=== PATIENT | male | born 1955 | race Caucasian/White ===

== ENCOUNTER 2022-04-19 22:27 | Inpatient (IN) | payer MEDICARE, OTHER ==
[~2022-04-19] VITALS: Ht 162.6 cm; Wt 51.3 kg
[2022-04-19 23:13] VITALS: BP 105/59
[2022-04-19 23:15] VITALS: BP 105/59
[2022-04-20] MEDS ORDERED: GABA-536 PO (00:07)
[2022-04-20] MEDS ORDERED: PANT40TA49 PO (00:07)
[2022-04-20] MEDS ORDERED: ESCI20TA PO (00:07)
[2022-04-20] MEDS ORDERED: ARIP10TA9 PO (00:07)
[2022-04-20] MEDS ORDERED: ZOLPIDEM TARTRATE 5 MG TABLET PO PRN (00:30)
[2022-04-20] MEDS ORDERED: Z GUARD REMEDY 4 OZ OINT TP PRN (00:30)
[2022-04-20] MEDS ORDERED: MAG HYDROX/AL HYDROX/SIMETH 30 ML UDC PO PRN (00:30)
[2022-04-20] MEDS ORDERED: MAGNESIUM HYDROXIDE 30 ML UDC PO PRN (00:30)
[2022-04-20] MEDS ORDERED: ACETAMINOPHEN 325 MG TABLET PO PRN (00:30)
[2022-04-20] MEDS: IV NS 0.9% 1,000 ML IV SCH ×3 (01:20→20:22)
--- NOTE | 2022-04-20 01:29 | NUR ---
RN ADMITTING NOTE PATIENT BROUGHT FROM [facility], PATIENT IS A/O X 4, ABLE TO MAKE NEEDS KNOWN. PATIENT IS ON RA TOLERATING WELL. PATIENT COMPLAINING OF ABDOMINAL CRAMPING/PAIN. COLOSTOMY PRESENT ON LLQ DRAINING DARK GREEN LIQUID STOOL. PATIENT CONTINENT AND USES URINAL. PATIENT'S BELONGINGS INVENTORIED. SKIN ASSESSED AND DOCUMENTED. PATIENT ORIENTED TO ROOM, RN , AND IT SENIOR SOFTWARE ENGINEER JAVA. PATIENT VACCINATED X 3 FOR COVID. SAFETY MEASURES IN PLACE: BED LOCKED AND IN LOWEST POSITION, CALL LIGHT WITHIN REACH, SIDE RAILS UP. WILL MONITOR PATIENT CLOSELY.
[2022-04-20] MEDS: HYDROCODONE/APAP 5/325MG TABLET PO PRN ×4 (01:40→20:46)
--- NOTE | 2022-04-20 01:50 | NUR ---
RN NOTE NORCO 5/325 GIVEN FOR PAIN ON PATIENT'S ABDOMEN 05/11. MRSA SWAB COLLECTED AND PLACED IN SPECIMEN FRIDGE. AWAITING LAB PICKUP.
--- NOTE | 2022-04-20 03:40 | NUR ---
URINE SPECIMEN COLLECTED FOR URINE OSMOLALITY, AWAITING LAB MACHINIST APPRENTICE
--- NOTE | 2022-04-20 06:42 | NUR ---
RN CLOSING NOTE PATIENT IS A/O X 4, ABLE TO MAKE NEEDS KNOWN. PATIENT IS ON RA TOLERATING WELL. PATIENT REPORTS HAVING PAIN ON ABD, NORCO 5-325 GIVEN. COLOSTOMY PRESENT ON LLQ DRAINING DARK GREEN LIQUID STOOL. RAVINDER 20 G PATENT AND INTACT WITH NS RUNNING AT 100 ML/HR. SAFETY MEASURES IN PLACE: BED LOCKED AND IN LOWEST POSITION, CALL LIGHT WITHIN REACH, SIDE RAILS UP. ALL NEEDS MET AND ATTENDED. ALL ORDERS CARRIED OUT. WILL ENDORSE TO DAY SHIFT RN FOR JUDSON.
--- NOTE | 2022-04-20 07:30 | NUR ---
MS RN OPENING NOTE Patient in bed, awake. A/O x 4, able to make needs known. Patient is legally blind. On room air, breathing evenly and unlabored. No SOB or s/s of distress noted. IV access on RAVINDER #20 infusing NS at 100 ml/hr. Colostomy noted on LLQ. Safety precautions in place: bed in low, locked position; siderails up x 2; call light within reach. Will continue to monitor.
[2022-04-20 08:00] VITALS: BP 93/56
[2022-04-20] MEDS: ARIPIPRAZOLE 5 MG TABLET PO SCH ×2 (09:00→09:09)
[2022-04-20] MEDS: PANTOPRAZOLE 40 MG TABLET.DR PO SCH (09:09)
[2022-04-20] MEDS: ESCITALOPRAM OXALATE (10 MG) 10 MG TABLET PO SCH (09:09)
[2022-04-20] MEDS: GABAPENTIN 400 MG CAPSULE PO SCH ×4 (09:09→17:19)
[2022-04-20 10:03] LABS: BASOPHILS % (AUTO) 0.1 % (0.0-2.0); EOSINOPHILS % (AUTO) 1.6 % (0.0-6.0); HEMATOCRIT 32 % (39-51); HEMOGLOBIN 10.9 g/dL (13.5-17.5); MEAN CORPUSCULAR HGB CONC 35 g/dl (31.0-36.0); MEAN CORPUSCULAR VOLUME 91 fL (80-96); MONOCYTES # (AUTO) 1.6 K/uL (0.1-1.30); MONOCYTES % (AUTO) 10.9 % (2.0-12.0); NEUTROPHILS # (AUTO) 11.5 K/uL (1.8-8.9); NEUTROPHILS % (AUTO) 80.4 % (43.0-81.0); PLATELET COUNT (AUTO) 201 K/uL (150-450); RED BLOOD CELL COUNT(AUTO) 3.47 MIL/uL (4.5-6.0); WHITE BLOOD COUNT (AUTO) 14.3 K/uL (4.3-11.0)
[2022-04-20 10:34] LABS: CALCIUM, SERUM 8.4 mg/dL (8.5-10.1); MAGNESIUM 1.3 mg/dL (1.8-2.4); PHOSPHORUS 3.1 mg/dL (2.5-4.9); POTASSIUM 3.1 mmol/L (3.5-5.1)
[2022-04-20] MEDS: CEFTRIAXONE 1 G in IV D5W 50 ML IV SCH (11:06)
[2022-04-20] MEDS ORDERED: METRONIDAZOLE 500MG/ NS 100ML 500 MG in PREMIX 1 EA IV SCH (13:00)
--- NOTE | 2022-04-20 14:32 | NUR ---
RN NOTE Patient complained of pain on the abdomen, 7/10 on pain scale. PRN Clyde 1 tab given. Will continue to monitor.
[2022-04-20 16:49] VITALS: BP 86/53
[2022-04-20] MEDS ORDERED: Magnesium 1GM/D5W 100ML PREMIX 100 ML IV SCH (17:00)
[2022-04-20] MEDS ORDERED: Magnesium 1GM/D5W 100ML PREMIX PIGGYBACK IV ONE (17:00)
--- NOTE | 2022-04-20 17:23 | NUR ---
RN NOTE Patient refused Gabapentin capsule scheduled for 0, states that he cannot take capsules because it gets stuck in his colostomy and it makes his stomach feel sick.
--- NOTE | 2022-04-20 18:51 | NUR ---
MS RN CLOSING NOTE Patient in bed, resting. A/O x 4, able to make needs known. Patient is legally blind. Stable on room air, breathing evenly and unlabored. No SOB or s/s of distress noted. IV access on RAVINDER #20 infusing NS at 100 ml/hr. Colostomy noted on LLQ. All needs attended to. Due meds given. Safety precautions maintained: bed in low, locked position; siderails up x 2; call light within reach. Will endorse to professor of sport management nurse for JUDSON.
--- NOTE | 2022-04-20 19:25 | NUR ---
RN OPENING NOTE PATIENT IS A/O X 4, ABLE TO MAKE NEEDS KNOWN. PATIENT IS ON RA TOLERATING WELL. NO REPORTS OF PAIN AT THIS TIME. COLOSTOMY PRESENT ON LLQ DRAINING DARK GREEN LIQUID STOOL. RAVINDER 20 G PATENT AND INTACT WITH NS RUNNING AT 100 ML/HR. SAFETY MEASURES IN PLACE: BED LOCKED AND IN LOWEST POSITION, CALL LIGHT WITHIN REACH, SIDE RAILS UP. WILL MONITOR PATIENT CLOSELY.
[2022-04-20 20:00] VITALS: BP 105/56
[2022-04-20] MEDS: METRONIDAZOLE 500MG/ NS 100ML 500 MG in PREMIX 1 EA IV SCH (20:22)
--- NOTE | 2022-04-20 20:49 | NUR ---
RN NTOE NORCO GIVEN FOR PAIN ON ABD 04/11, WILL REASSESS AT A LATER TIME
[2022-04-21] MEDS: HYDROCODONE/APAP 5/325MG TABLET PO PRN (02:59)
--- NOTE | 2022-04-21 02:59 | NUR ---
RN NOTE NORCO GIVEN FOR PATIENT'S PAIN ON ABD, WILL REASSESS PATIENT'S PAIN AT A LATER TIME.
[2022-04-21] MEDS: IV NS 0.9% 1,000 ML IV SCH ×2 (05:39→19:31)
[2022-04-21] MEDS: METRONIDAZOLE 500MG/ NS 100ML 500 MG in PREMIX 1 EA IV SCH ×3 (05:39→21:35)
[2022-04-21 06:15] LABS: BASOPHILS % (AUTO) 0.1 % (0.0-2.0); EOSINOPHILS % (AUTO) 1.7 % (0.0-6.0); HEMATOCRIT 33 % (39-51); HEMOGLOBIN 11.3 g/dL (13.5-17.5); LYMPHOCYTES # (AUTO) 1.3 K/uL (0.8-4.8); LYMPHOCYTES % (AUTO) 9.9 % (20.0-44.0); MEAN CORPUSCULAR HGB CONC 35 g/dl (31.0-36.0); MEAN CORPUSCULAR VOLUME 92 fL (80-96); MONOCYTES # (AUTO) 1.4 K/uL (0.1-1.30); MONOCYTES % (AUTO) 10.4 % (2.0-12.0); NEUTROPHILS # (AUTO) 10.3 K/uL (1.8-8.9); NEUTROPHILS % (AUTO) 77.9 % (43.0-81.0); PLATELET COUNT (AUTO) 209 K/uL (150-450); RED BLOOD CELL COUNT(AUTO) 3.54 MIL/uL (4.5-6.0); WHITE BLOOD COUNT (AUTO) 13.3 K/uL (4.3-11.0)
--- NOTE | 2022-04-21 06:45 | NUR ---
RN CLOSING NOTE PATIENT IS A/O X 4, ABLE TO MAKE NEEDS KNOWN. PATIENT A/O X 4, PATIENT BLIND ON BOTH, CAN ONLY SEE A VERY LITTLE. PATIENT IS ON RA TOLERATING WELL. PATIENT REPORTS HAVING PAIN ON ABD, NORCO 5-325 GIVEN. COLOSTOMY PRESENT ON LLQ DRAINING GREEN/REDDISH STOOL, PATIENT WAS EATING RED JELLO AND CRANBERRY JUICE. RAVINDER 20 G PATENT AND INTACT WITH NS RUNNING AT 100 ML/HR. SAFETY MEASURES IN PLACE: BED LOCKED AND IN LOWEST POSITION, CALL LIGHT WITHIN REACH, SIDE RAILS UP. ALL NEEDS MET AND ATTENDED. ALL ORDERS CARRIED OUT. WILL ENDORSE TO DAY SHIFT RN FOR JUDSON.
--- NOTE | 2022-04-21 07:29 | NUR ---
MS RN OPENING NOTE RECEIVED PATIENT AWAKE IN BED. PT IS A/O X 4, ABLE TO MAKE NEEDS KNOWN. PATIENT BLIND ON BOTH EYES, CAN ONLY SEE A VERY LITTLE. ON RA TOLERATING WELL. BREATHING UNLABORED WITH NO SIGN OF RESPIRATORY DISTRESS. COLOSTOMY PRESENT ON LLQ. RAVINDER G #20 PATENT AND INTACT WITH NS RUNNING AT 100 ML/HR. SAFETY MEASURES IN PLACE: BED LOCKED AND IN LOWEST POSITION, CALL LIGHT WITHIN REACH, SIDE RAILS UP. WILL CONTINUE TO MONITOR PT.
[2022-04-21 07:46] LABS: CALCIUM, SERUM 8.3 mg/dL (8.5-10.1); CREATININE 1.6 mg/dL (0.6-1.3)
[2022-04-21 07:58] LABS: POTASSIUM 2.8 mmol/L (3.5-5.1)
[2022-04-21 08:00] VITALS: BP 86/56
[2022-04-21] MEDS: GABAPENTIN 400 MG CAPSULE PO SCH ×5 (08:42→17:00)
[2022-04-21] MEDS: POTASSIUM CL. PREMIX PERIPHER. 50 ML IV SCH ×3 (08:42→10:59)
[2022-04-21] MEDS: ESCITALOPRAM OXALATE (10 MG) 10 MG TABLET PO SCH (08:42)
[2022-04-21] MEDS: PANTOPRAZOLE 40 MG TABLET.DR PO SCH (08:42)
[2022-04-21] MEDS: ARIPIPRAZOLE 5 MG TABLET PO SCH ×2 (08:42→08:55)
--- NOTE | 2022-04-21 08:56 | NUR ---
RN NOTE PT REFUSED ABILIFY AND NEURONTIN SCHEDULED AT 0900. EXPLAINED RISK AND BENEFITS X3, PT STILL STRONGLY REFUSED.
[2022-04-21] MEDS: MORPHINE SULFATE INJ 4 MG/ML DISP.SYRIN IV PRN ×4 (09:47→20:24)
[2022-04-21] MEDS: CEFTRIAXONE 1 G in IV D5W 50 ML IV SCH (12:03)
[2022-04-21 16:23] VITALS: BP 80/44
[2022-04-21 17:30] LABS: BILIRUBIN,URINE NEGATIVE (NEGATIVE); COLOR,URINE YELLOW (YELLOW); LEUKOCYTE ESTERASE ,URINE NEGATIVE (NEGATIVE); NITRITE, URINE NEGATIVE (NEGATIVE); PH,URINE 5.5 (5.0-8.0); PROTEIN,URINE NEGATIVE (NEGATIVE); UGLUCOSE NEGATIVE (NEGATIVE); UROBILINOGEN,URINE 0.2 EU/dL (0.2)
--- NOTE | 2022-04-21 19:22 | NUR ---
MS RN CLOSING NOTE PATIENT AWAKE IN BED. PT IS A/O X 4, ABLE TO MAKE NEEDS KNOWN. PATIENT BLIND ON BOTH EYES, CAN ONLY SEE A VERY LITTLE. ON RA TOLERATING WELL. BREATHING UNLABORED WITH NO SIGN OF RESPIRATORY DISTRESS. COLOSTOMY PRESENT ON LLQ. RAVINDER G #20 PATENT AND INTACT WITH NS RUNNING AT 100 ML/HR. ALL NEEDS ATTENDED. KEPT CLEAN AND COMFORTABLE. SAFETY MEASURES IN PLACE: BED LOCKED AND IN LOWEST POSITION, CALL LIGHT WITHIN REACH, SIDE RAILS UP. ENDORSED TO THUMB SEWER NURSE FOR JUDSON.
[2022-04-21 20:00] VITALS: BP 109/62
--- NOTE | 2022-04-21 20:29 | NUR ---
MS RN NOTES PRN MORPHINE GIVEN FOR 9/10 PAIN TOLERATED WELL ALL NEEDS ATTENDED WILL CONTINUE TO MONITOR.
[2022-04-21] MEDS ORDERED: IV PREMIX NS +20MEQ KCL 1 L IV ONE (23:28)
[2022-04-21] MEDS: Potassium Chloride 20 MEQ in IV NS 0.9% 1,000 ML IV SCH (23:59)
[2022-04-22] MEDS: MORPHINE SULFATE INJ 4 MG/ML DISP.SYRIN IV PRN ×5 (01:12→21:20)
--- NOTE | 2022-04-22 01:16 | NUR ---
MS RN NOTES PRN MORPHINE GIVEN FOR 9/10 PAIN TOLERATED WELL ALL NEEDS ATTENDED WILL CONTINUE TO MONITOR.
[2022-04-22] MEDS: METRONIDAZOLE 500MG/ NS 100ML 500 MG in PREMIX 1 EA IV SCH ×3 (04:07→20:23)
--- NOTE | 2022-04-22 06:35 | NUR ---
MS RN CLOSING NOTE PATIENT AWAKE IN BED. PT IS A/O X 4, ABLE TO MAKE NEEDS KNOWN. PATIENT BLIND ON BOTH EYES, CAN ONLY SEE A VERY LITTLE. ON RA TOLERATING WELL. BREATHING UNLABORED WITH NO SIGN OF RESPIRATORY DISTRESS. COLOSTOMY PRESENT ON LLQ. RAVINDER G #20 PATENT AND INTACT WITH NS WITH 20MEQ K @ 125 ML/HR. PRN PAIN MANAGEMENT PROVIDED NEEDED.SAFETY MEASURES IN PLACE: BED LOCKED AND IN LOWEST POSITION, CALL LIGHT WITHIN REACH, SIDE RAILS UP. WILL ENDORSE CARE TO DAY SHIFT NURSE.
[2022-04-22 06:36] LABS: BASOPHILS % (AUTO) 0.2 % (0.0-2.0); EOSINOPHILS % (AUTO) 1.5 % (0.0-6.0); HEMATOCRIT 28 % (39-51); HEMOGLOBIN 9.5 g/dL (13.5-17.5); LYMPHOCYTES % (AUTO) 9.4 % (20.0-44.0); MEAN CORPUSCULAR HGB CONC 34 g/dl (31.0-36.0); MEAN CORPUSCULAR VOLUME 91 fL (80-96); MONOCYTES # (AUTO) 0.9 K/uL (0.1-1.30); NEUTROPHILS # (AUTO) 8.9 K/uL (1.8-8.9); NEUTROPHILS % (AUTO) 80.9 % (43.0-81.0); PLATELET COUNT (AUTO) 187 K/uL (150-450); RED BLOOD CELL COUNT(AUTO) 3.07 MIL/uL (4.5-6.0); WHITE BLOOD COUNT (AUTO) 11.1 K/uL (4.3-11.0)
[2022-04-22 07:27] LABS: CREATININE 1.3 mg/dL (0.6-1.3); POTASSIUM 3.1 mmol/L (3.5-5.1)
--- NOTE | 2022-04-22 07:31 | NUR ---
MS RN OPENING NOTE RECEIVED PATIENT AWAKE IN BED. PATIENT IS A/O X 4, ABLE TO MAKE NEEDS KNOWN. PATIENT BLIND ON BOTH EYES, VERY SMALL . ON RA TOLERATING WELL. BREATHING UNLABORED WITH NO SIGN OF RESPIRATORY DISTRESS. COLOSTOMY PRESENT ON LLQ. RAVINDER G #20 PATENT AND INTACT WITH NS WITH 20MEQ K @ 125 ML/HR.SAFETY MEASURES IN PLACE: BED LOCKED AND IN LOWEST POSITION, CALL LIGHT WITHIN REACH, SIDE RAILS UP. WILL CONTINUE TO MONITOR.
[2022-04-22] MEDS: GABAPENTIN 400 MG CAPSULE PO SCH ×3 (09:00→16:11)
[2022-04-22] MEDS: ARIPIPRAZOLE 5 MG TABLET PO SCH (09:00)
[2022-04-22] MEDS: PANTOPRAZOLE 40 MG TABLET.DR PO SCH (09:06)
[2022-04-22] MEDS: ESCITALOPRAM OXALATE (10 MG) 10 MG TABLET PO SCH (09:06)
[2022-04-22] MEDS: Potassium Chloride 20 MEQ in IV NS 0.9% 1,000 ML IV SCH ×2 (09:33→16:12)
--- NOTE | 2022-04-22 09:37 | NUR ---
RN NOTES PATIENT REFUSED 0900 AM ABILIFY AND GABAPENTIN. EXPLAINED THE BENEFITS AND THE MEDICATION ACTIONS, BUT STILL REFUSING . RESPECTED PATIENT RIGHTS.
[2022-04-22] MEDS: CEFTRIAXONE 1 G in IV D5W 50 ML IV SCH (10:20)
[2022-04-22] MEDS ORDERED: POTASSIUM CHLORIDE 20 MEQ TAB.PRT.SR PO ONE (11:00)
--- NOTE | 2022-04-22 12:53 | NUR ---
RN NOTES PATIENT REFUSED 1300 GABAPENTIN.
[2022-04-22 16:00] VITALS: BP 105/60
--- NOTE | 2022-04-22 18:39 | NUR ---
MS RN CLOSING NOTE PATIENT AWAKE IN BED. PATIENT IS A/O X 4, ABLE TO MAKE NEEDS KNOWN. PATIENT BLIND ON BOTH EYES, VERY SMALL . ON RA TOLERATING WELL. BREATHING UNLABORED WITH NO SIGN OF RESPIRATORY DISTRESS. COLOSTOMY PRESENT ON LLQ. RAVINDER G #20 PATENT AND INTACT WITH NS WITH 20MEQ K @ 125 ML/HR. ALL DUE MEDS GIVEN ORDERED. SAFETY MEASURES IN PLACE: BED LOCKED AND IN LOWEST POSITION, CALL LIGHT WITHIN REACH, SIDE RAILS UP. WILL ENDORSE FOR JUDSON.
--- NOTE | 2022-04-22 19:36 | NUR ---
RN OPENING NOTE PATIENT IS A/O X 4, ABLE TO MAKE NEEDS KNOWN. PATIENT A/O X 4, PATIENT LEGALLY BLIND ON BOTH EYES. PATIENT IS ON RA TOLERATING WELL. NO REPORTS OF PAIN OR DISCOMFORT AT THIS TIME. COLOSTOMY PRESENT ON LLQ DRAINING GREEN STOOL. RAVINDER 20 G PATENT AND INTACT WITH NS WITH 20 MEQ OF POTASSIUM CL RUNNING AT 125 ML/HR. SAFETY MEASURES IN PLACE: BED LOCKED AND IN LOWEST POSITION, CALL LIGHT WITHIN REACH, SIDE RAILS UP. WILL MONITOR PATIENT CLOSELY.
[2022-04-22 20:00] VITALS: BP 112/52
[2022-04-22] MEDS: MUPIROCIN OINT 2% 22 GM TUBE NS SCH (20:24)
--- NOTE | 2022-04-22 21:20 | NUR ---
RN NOTE ADMINISTERED MORPHINE 4 MG TO PATIENT FOR PAIN 07/12, WILL REASSESS PATIENT'S PAIN AT A LATER TIME
[2022-04-23] MEDS: Potassium Chloride 20 MEQ in IV NS 0.9% 1,000 ML IV SCH ×4 (00:13→23:46)
--- NOTE | 2022-04-23 04:00 | NUR ---
RN NOTE PATIENT ACCIDENTLY REMOVED RAVINDER 20 G IV ACCESS. WILL RE-INSERT NEW IV ACCESS
--- NOTE | 2022-04-23 05:41 | NUR ---
LFA 22 G IV ACCESS INSERTED BY CHARGE NURSE MYRTLE. PATENT AND INTACT.
[2022-04-23] MEDS: METRONIDAZOLE 500MG/ NS 100ML 500 MG in PREMIX 1 EA IV SCH (05:42)
[2022-04-23] MEDS: MORPHINE SULFATE INJ 4 MG/ML DISP.SYRIN IV PRN ×3 (05:43→14:54)
--- NOTE | 2022-04-23 06:50 | NUR ---
RN CLOSING NOTE PATIENT IS A/O X 4, EYES CLOSED, EASILY AWAKENED. ABLE TO MAKE NEEDS KNOWN. PATIENT A/O X 4, PATIENT LEGALLY BLIND ON BOTH EYES. PATIENT IS ON RA TOLERATING WELL. NO REPORTS OF PAIN OR DISCOMFORT AT THIS TIME. PAIN ON THE ABDOMEN MANAGED WITH MORPHINE X 2. COLOSTOMY PRESENT ON LLQ DRAINING GREEN STOOL. LFA 22 G PATENT AND INTACT WITH NS WITH 20 MEQ OF POTASSIUM CL RUNNING AT 125 ML/HR. SAFETY MEASURES IN PLACE: BED LOCKED AND IN LOWEST POSITION, CALL LIGHT WITHIN REACH, SIDE RAILS UP. ALL NEEDS MET AND ATTENDED. ALL ORDERS CARRIED OUT. WILL ENDORSE TO DAY SHIFT NURSE FOR JUDSON.
[2022-04-23 07:10] LABS: BASOPHILS % (AUTO) 0.3 % (0.0-2.0); EOSINOPHILS % (AUTO) 1.2 % (0.0-6.0); HEMATOCRIT 27 % (39-51); HEMOGLOBIN 9.4 g/dL (13.5-17.5); LYMPHOCYTES % (AUTO) 8.4 % (20.0-44.0); MEAN CORPUSCULAR HGB CONC 34 g/dl (31.0-36.0); MEAN CORPUSCULAR VOLUME 92 fL (80-96); MONOCYTES % (AUTO) 8.5 % (2.0-12.0); NEUTROPHILS # (AUTO) 9.3 K/uL (1.8-8.9); NEUTROPHILS % (AUTO) 81.6 % (43.0-81.0); PLATELET COUNT (AUTO) 164 K/uL (150-450); RED BLOOD CELL COUNT(AUTO) 2.95 MIL/uL (4.5-6.0); WHITE BLOOD COUNT (AUTO) 11.4 K/uL (4.3-11.0)
[2022-04-23 07:36] LABS: BILIRUBIN,DIRECT 0.1 mg/dL (0.0-0.2); BILIRUBIN,TOTAL 0.3 mg/dL (0.2-1.0); CALCIUM, SERUM 7.3 mg/dL (8.5-10.1); CREATININE 1.2 mg/dL (0.6-1.3); POTASSIUM 2.9 mmol/L (3.5-5.1); TOTAL PROTEIN, SERUM 5.5 g/dL (6.4-8.2)
--- NOTE | 2022-04-23 07:54 | NUR ---
MS RN OPENING NOTE Patient in bed, awake. A/Ox 4, patient is legally blind on both eyes. On room air, breathing evenly and unlabored. No SOB or s/s of distress noted. IV access on LFA #22 infusing NS with 20 meq K at 125 ml/hr. Colostomy on LLQ noted. Safety precautions in place: bed in low, locked position; siderails up x 2; call light within reach. Will continue to monitor.
[2022-04-23] MEDS: ESCITALOPRAM OXALATE (10 MG) 10 MG TABLET PO SCH (08:18)
[2022-04-23] MEDS: PANTOPRAZOLE 40 MG TABLET.DR PO SCH (08:18)
[2022-04-23] MEDS: MUPIROCIN OINT 2% 22 GM TUBE NS SCH ×3 (08:23→21:51)
[2022-04-23] MEDS: ARIPIPRAZOLE 5 MG TABLET PO SCH (08:25)
[2022-04-23] MEDS: GABAPENTIN 400 MG CAPSULE PO SCH ×3 (08:25→17:00)
[2022-04-23] MEDS: POTASSIUM CHLORIDE 20 MEQ TAB.PRT.SR PO SCH ×3 (10:03→12:24)
--- NOTE | 2022-04-23 10:07 | NUR ---
RN NOTE Patient complained of pain on abdomen 9/10 pain scale. PRN Morphine 4 mg give. Will continue to monitor.
[2022-04-23] MEDS: CEFTRIAXONE 1 G in IV D5W 50 ML IV SCH (11:19)
[2022-04-23] MEDS: METRONIDAZOLE 500 MG TABLET PO SCH ×3 (12:26→21:53)
--- NOTE | 2022-04-23 14:54 | NUR ---
RN NOTE Patient complained of pain on abdomen 9/10 pain scale. PRN Morphine 4 mg give. Will continue to monitor.
--- NOTE | 2022-04-23 17:33 | NUR ---
RN NOTE Patient has been refusing Gabapentin medication, states that the capsule is getting stuck in his colostomy. Explained that we can take the powder out from the capsule and mix it with apple sauce or juice, patient still refused.
--- NOTE | 2022-04-23 18:59 | NUR ---
MS RN CLOSING NOTE Patient in bed, asleep. A/Ox 4, patient is legally blind on both eyes. Stable on room air, breathing evenly and unlabored. No SOB or s/s of distress noted. IV access on LFA #22 infusing NS with 20 meq K at 125 ml/hr. Colostomy on LLQ noted. Due meds given. All needs attended to. Safety precautions in place: bed in low, locked position; siderails up x 2; call light within reach. Will endorse to evening or night nurse supervisor nurse for JUDSON.
--- NOTE | 2022-04-23 19:00 | NUR ---
RN NOTE Patient's BP is 73/37, patient refusing to retake BP. HR is 73, RR 16, Temp 97.7, SPO2 98. Dr. Gold notified, awaiting for orders.
--- NOTE | 2022-04-23 19:28 | NUR ---
RN OPENING NOTE PATIENT IS A/O X 4, ABLE TO MAKE NEEDS KNOWN. PATIENT A/O X 4, PATIENT LEGALLY BLIND ON BOTH EYES. PATIENT IS ON RA TOLERATING WELL. NO REPORTS OF PAIN OR DISCOMFORT AT THIS TIME. COLOSTOMY PRESENT ON LLQ DRAINING BROWNISH STOOL. LFA 22 G PATENT AND INTACT WITH NS WITH 20 MEQ OF POTASSIUM CL RUNNING AT 125 ML/HR. NO PAIN AT THIS TIME. AWAITING MD ORDER FOR LOW BP. SAFETY MEASURES IN PLACE: BED LOCKED AND IN LOWEST POSITION, CALL LIGHT WITHIN REACH, SIDE RAILS UP. WILL MONITOR PATIENT CLOSELY.
[2022-04-23 20:00] VITALS: BP 82/42
[2022-04-23] MEDS ORDERED: IV NS 0.9% 500 ML IV ONE ×2 (20:00→23:00)
--- NOTE | 2022-04-23 20:03 | NUR ---
BP 82/43, HR 68. PREVIOUSLY 73/37. DR. BENNETT ORDERED 500 ML BOLUS. BOLUS IV NS 500 ML STARTED.
--- NOTE | 2022-04-23 21:59 | NUR ---
PATIENT REFUSED FLAGYL PO, AND BACTROBAN. EDUCATED PATIENT ON PURPOSE OF MEDS, RISK AND BENEFITS. WHEN ASKED PATIENT FOR A REASON FOR REFUSAL PATIENT STATES THAT HE "DOESN'T LIKE" THE BACTROBAN AND "JUST DON'T WANT TO TAKE IT" FOR THE FLAGYL.
--- NOTE | 2022-04-23 22:00 | NUR ---
AFTER BOLUS BP 92/48, RECEHCKED MANUALLY 90/50 Addendum: 04/23/22 at 2217 by BRIAN MARIN RN NOTIFIED. AWAITING ORDERS
--- NOTE | 2022-04-23 22:33 | NUR ---
MD ORDERED ANOTHER 500 ML BOLUS NS, ORDER READ BACK AND CARRIED OUT.
--- NOTE | 2022-04-23 23:40 | NUR ---
BP AFTER BOLUS 91/41, REFUSING MANUAL BP. WILL NOTIFY
--- NOTE | 2022-04-24 | NUR ---
PER MD MONITOR BP, NO NEW ORDERS
[2022-04-24 04:00] VITALS: BP 94/47
[2022-04-24] MEDS: ONDANSETRON HCL/PF 4 MG/2 ML VIAL IVP PRN (06:16)
--- NOTE | 2022-04-24 06:20 | NUR ---
ZOFRAN GIVEN, PATIENT VERBALIZED HAVING NAUSEA, NO VOMITING
[2022-04-24 06:45] LABS: BASOPHILS % (AUTO) 0.3 % (0.0-2.0); EOSINOPHILS % (AUTO) 1.1 % (0.0-6.0); HEMATOCRIT 26 % (39-51); HEMOGLOBIN 8.6 g/dL (13.5-17.5); LYMPHOCYTES # (AUTO) 0.8 K/uL (0.8-4.8); LYMPHOCYTES % (AUTO) 6.3 % (20.0-44.0); MEAN CORPUSCULAR HGB CONC 34 g/dl (31.0-36.0); MEAN CORPUSCULAR VOLUME 92 fL (80-96); MONOCYTES # (AUTO) 0.9 K/uL (0.1-1.30); MONOCYTES % (AUTO) 7.5 % (2.0-12.0); NEUTROPHILS # (AUTO) 10.1 K/uL (1.8-8.9); NEUTROPHILS % (AUTO) 84.8 % (43.0-81.0); PLATELET COUNT (AUTO) 183 K/uL (150-450); RED BLOOD CELL COUNT(AUTO) 2.78 MIL/uL (4.5-6.0); WHITE BLOOD COUNT (AUTO) 11.9 K/uL (4.3-11.0)
[2022-04-24 06:49] LABS: CALCIUM, SERUM 6.5 mg/dL (8.5-10.1); CREATININE 1.2 mg/dL (0.6-1.3); PHOSPHORUS 1.9 mg/dL (2.5-4.9)
--- NOTE | 2022-04-24 07:00 | NUR ---
RN CLOSING NOTE PATIENT IS A/O X 4, EYES CLOSED, EASILY AWAKENED. ABLE TO MAKE NEEDS KNOWN. PATIENT A/O X 4, PATIENT LEGALLY BLIND ON BOTH EYES. PATIENT IS ON RA TOLERATING WELL. NAUSEA MANAGED WITH ZOFRAN IVP. BP STILL RUNNING LOW. COLOSTOMY PRESENT ON LLQ DRAINING BROWNISH/YELLOW STOOL. LFA 22 G PATENT AND INTACT WITH NS WITH 20 MEQ OF POTASSIUM CL RUNNING AT 125 ML/HR. SAFETY MEASURES IN PLACE: BED LOCKED AND IN LOWEST POSITION, CALL LIGHT WITHIN REACH, SIDE RAILS UP. ALL NEEDS MET AND ATTENDED. ALL ORDERS CARRIED OUT. WILL ENDORSE TO DAY SHIFT NURSE FOR JUDSON.
[2022-04-24 07:12] LABS: POTASSIUM 2.6 mmol/L (3.5-5.1)
[2022-04-24 07:14] LABS: MAGNESIUM 0.6 mg/dL (1.8-2.4)
--- NOTE | 2022-04-24 07:16 | NUR ---
LOGISTICS MANAGEMENT SPECIALIST CARLOS CALLED TO REPORT CRITICAL LAB OF K+ 2.6, MAG 0.6. WILL NOTIFY
--- NOTE | 2022-04-24 07:30 | NUR ---
MS RN OPENING NOTES RECEIVED PATIENT ON BED AWAKE AND VERBALLY RESONSIVE , ABLE TO MAKE NEEDS KNOWN. PATIENT A/O X 4, PATIENT LEGALLY BLIND ON BOTH EYES. PATIENT IS ON RA TOLERATING WELL. NO REPORTS OF PAIN OR DISCOMFORT AT THIS TIME. COLOSTOMY PRESENT ON LLQ DRAINING BROWNISH STOOL. LFA 22 G PATENT AND INTACT WITH NS WITH 20 MEQ OF POTASSIUM CL RUNNING AT 125 ML/HR. NO PAIN AT THIS TIME.. SAFETY MEASURES IN PLACE: BED LOCKED AND IN LOWEST POSITION, CALL LIGHT WITHIN REACH, SIDE RAILS UP. WILL MONITOR PATIENT CLOSELY.
[2022-04-24 08:17] VITALS: BP 102/56
[2022-04-24] MEDS: Potassium Chloride 20 MEQ in IV NS 0.9% 1,000 ML IV SCH (08:33)
[2022-04-24] MEDS: ARIPIPRAZOLE 5 MG TABLET PO SCH (09:00)
[2022-04-24] MEDS: MUPIROCIN OINT 2% 22 GM TUBE NS SCH ×2 (09:00→22:18)
[2022-04-24] MEDS: GABAPENTIN 400 MG CAPSULE PO SCH ×3 (09:00→17:00)
[2022-04-24] MEDS: PANTOPRAZOLE 40 MG TABLET.DR PO SCH (09:01)
[2022-04-24] MEDS: ESCITALOPRAM OXALATE (10 MG) 10 MG TABLET PO SCH (09:01)
[2022-04-24] MEDS: METRONIDAZOLE 500 MG TABLET PO SCH (09:01)
--- NOTE | 2022-04-24 09:22 | NUR ---
RN NOTE- MAG 0.6. DR BENNETT ORDERED MAG 8 GM IV. ORDER ENTERED / COMPLIED
[2022-04-24] MEDS: Magnesium 1GM/D5W 100ML PREMIX 100 ML IV SCH ×8 (09:42→19:21)
[2022-04-24] MEDS: Potassium Chloride 40 MEQ in IV NS 0.9% 1,000 ML IV SCH ×2 (10:22→22:00)
--- NOTE | 2022-04-24 10:30 | NUR ---
RN NOTE Patient threw water pitcher on the floor, when asked what happened patient wouldn't respond.
[2022-04-24] MEDS: HYDROCODONE/APAP 5/325MG TABLET PO PRN (10:48)
--- NOTE | 2022-04-24 10:48 | NUR ---
RN NOTE Patient complained of abdominal pain 7/10 on pain scale. PRN Norcp 5/325 1 tablet given. Will continue to monitor.
[2022-04-24] MEDS: CEFTRIAXONE 1 G in IV D5W 50 ML IV SCH (11:09)
[2022-04-24 11:22] LABS: IRON, SERUM 172 ug/dl (50-175); TOTAL IRON BINDING CAPACITY 167 ug/dl (250-450)
[2022-04-24] MEDS: METRONIDAZOLE 500MG/ NS 100ML 500 MG in PREMIX 1 EA IV SCH ×2 (13:39→22:18)
[2022-04-24 15:43] VITALS: BP 96/57
[2022-04-24] MEDS ORDERED: K PHOS NEUTRAL 250 MG TABLET PO ONE (16:00)
[2022-04-24] MEDS: ENSURE ENLIVE CHOC 237 ML CAN PO SCH (17:20)
--- NOTE | 2022-04-24 18:39 | NUR ---
RN NOTE Patient pulled out IV access. Attempted re-insertion, patient is refusing; getting agitated and angry.
--- NOTE | 2022-04-24 18:52 | NUR ---
RN NOTE Patient still refusing IV re-insertion, still angry and agitated. Will wait for patient to calm down, will endorse to retail shift leader nurse to try re-insertion.
--- NOTE | 2022-04-24 18:54 | NUR ---
MS RN CLOSING NOTE Patient in bed. A/O x 4, able to make needs known. Stable on room air, breathing evenly and unlabored. No SOB or s/s of distress noted. Patient pulled out IV access and refusing re-insertion. All needs attended to. Due meds given. Safety precautions maintained: be din low ,locked position; siderails up x 2; call light within reach. Will endorse to night worker nurse for JUDSON.
[2022-04-24 20:00] VITALS: BP 95/46
--- NOTE | 2022-04-24 21:00 | NUR ---
RN NOTE IV INSERTION X2 UNSUCCESSFUL. SUCCESSFUL ON 3RD ATTEMPT BY Luisa SWAN ON L-FA #25K
[2022-04-25 04:11] VITALS: BP 107/64
[2022-04-25] MEDS: HYDROCODONE/APAP 5/325MG TABLET PO PRN ×4 (04:20→20:08)
[2022-04-25] MEDS: METRONIDAZOLE 500MG/ NS 100ML 500 MG in PREMIX 1 EA IV SCH ×3 (05:30→20:07)
--- NOTE | 2022-04-25 07:00 | NUR ---
MS RN OPENING NOTE PATIENT LAYING IN BED, A/O X 4, ABLE TO MAKE NEEDS KNOWN. TOLERATING WELL ON ROOM AIR WITH NO S/S RESPIRATORY DISTRESS. NO COMPLAINTS OF PAIN OR DISCOMFORT AT THIS TIME. L FA # 22 G IV CLEAN, INTACT, AND INFUSING NS WITH 40 mEq KCL @ 100 ML/HR. SAFETY MEASURES IN PLACE: BED IN LOWEST LOCKED POSITION, SIDE RAILS UP X 2, CALL LIGHT WITHIN REACH. WILL CONTINUE TO MONITOR.
[2022-04-25] MEDS: Potassium Chloride 40 MEQ in IV NS 0.9% 1,000 ML IV SCH ×2 (07:40→16:51)
[2022-04-25 07:51] LABS: BASOPHILS % (AUTO) 0.3 % (0.0-2.0); EOSINOPHILS % (AUTO) 0.7 % (0.0-6.0); HEMATOCRIT 26 % (39-51); HEMOGLOBIN 8.7 g/dL (13.5-17.5); LYMPHOCYTES % (AUTO) 8.9 % (20.0-44.0); MEAN CORPUSCULAR HGB CONC 34 g/dl (31.0-36.0); MEAN CORPUSCULAR VOLUME 91 fL (80-96); MONOCYTES # (AUTO) 0.8 K/uL (0.1-1.30); MONOCYTES % (AUTO) 6.9 % (2.0-12.0); NEUTROPHILS # (AUTO) 9.6 K/uL (1.8-8.9); NEUTROPHILS % (AUTO) 83.2 % (43.0-81.0); PLATELET COUNT (AUTO) 201 K/uL (150-450); RED BLOOD CELL COUNT(AUTO) 2.83 MIL/uL (4.5-6.0); WHITE BLOOD COUNT (AUTO) 11.6 K/uL (4.3-11.0)
[2022-04-25 08:10] LABS: ALBUMIN 2.8 g/dL (3.4-5.0); BILIRUBIN,DIRECT 0.1 mg/dL (0.0-0.2); BILIRUBIN,TOTAL 0.2 mg/dL (0.2-1.0); TOTAL PROTEIN, SERUM 5.3 g/dL (6.4-8.2)
[2022-04-25] MEDS: ESCITALOPRAM OXALATE (10 MG) 10 MG TABLET PO SCH (08:40)
[2022-04-25] MEDS: ARIPIPRAZOLE 5 MG TABLET PO SCH ×2 (08:40→09:00)
[2022-04-25] MEDS: PANTOPRAZOLE 40 MG TABLET.DR PO SCH (08:40)
[2022-04-25] MEDS: GABAPENTIN 400 MG CAPSULE PO SCH ×4 (08:40→16:52)
[2022-04-25] MEDS: MUPIROCIN OINT 2% 22 GM TUBE NS SCH ×2 (08:41→20:09)
[2022-04-25] MEDS: ENSURE ENLIVE CHOC 237 ML CAN PO SCH ×2 (08:41→16:52)
[2022-04-25 09:02] LABS: CREATININE 1.1 mg/dL (0.6-1.3); MAGNESIUM 1.9 mg/dL (1.8-2.4); PHOSPHORUS 1.7 mg/dL (2.5-4.9)
[2022-04-25 09:07] LABS: POTASSIUM 2.7 mmol/L (3.5-5.1)
[2022-04-25] MEDS: CEFTRIAXONE 1 G in IV D5W 50 ML IV SCH (11:10)
[2022-04-25] MEDS ORDERED: POTASSIUM CHLORIDE 20 MEQ TAB.PRT.SR PO ONE (13:00)
[2022-04-25 15:48] VITALS: BP 95/53
[2022-04-25] MEDS ORDERED: K PHOS NEUTRAL 250 MG TABLET PO ONE (16:00)
--- NOTE | 2022-04-25 19:00 | NUR ---
MS RN CLOSING NOTE PATIENT LAYING IN BED, A/O X 4, ABLE TO MAKE NEEDS KNOWN. TOLERATING WELL ON ROOM AIR WITH NO S/S RESPIRATORY DISTRESS. L FA # 22 G IV CLEAN, INTACT, AND FLUSHING WELL. RAVINDER MIDLINE CLEAN, INTACT, AND INFUSING NS WITH 40 mEq KCL @ 100 ML/HR. ALL NEEDS MET. SAFETY MEASURES IN PLACE: BED IN LOWEST LOCKED POSITION, SIDE RAILS UP X 2, CALL LIGHT WITHIN REACH. WILL ENDORSE TO WIND TURBINE BLADE REPAIR TECHNICIAN FOR JUDSON. Addendum: 04/25/22 at 1942 by EDMAR EVERETT RN NORCO 5/325 MG PO PRN Q4H ADMINISTERED AT 0932 AND 1651 DURING SHIFT FOR ABDOMINAL PAIN
--- NOTE | 2022-04-25 19:30 | NUR ---
MS RN OPENING NOTE RECEIVED PATIENT LAYING IN BED, A/O X 4, ABLE TO MAKE NEEDS KNOWN. PT STABLE ON ROOM AIR. NO SOB OR S/S OF RESPIRATORY DISTRESS. BREATHING EVEN AND UNLABORED. IV ACCESS LFA # 22 G AND RAVINDER ML RUNNING NS WITH 40 mEq KCL @ 100 ML/HR. SAFETY PRECAUTIONS IN PLACE. BED IN LOWEST LOCKED POSITION, HOB ELEVATED, SIDE RAILS UP X2, AND CALL LIGHT AND TABLE WITHIN REACH. ALL NEEDS MET AT THIS TIME.
[2022-04-25 20:00] VITALS: BP 112/50
--- NOTE | 2022-04-25 20:08 | NUR ---
RN NOTE PT COMPLAINED OF ABDOMINAL PAIN 04/11. ADMINISTERED NORCO 5-325 MG FOR MODERATE PAIN PER ORDER AND PATIENT REQUEST. MADE COMFORTABLE IN BED. ALL NEEDS MET AT THIS TIME.
[2022-04-25] MEDS ORDERED: [UNRECOGNIZED DRUG - OTHER] IV PRN (23:00)
[2022-04-25] MEDS ORDERED: POTASSIUM CHLORIDE IV PRN (23:00)
[2022-04-26] MEDS: HYDROCODONE/APAP 5/325MG TABLET PO PRN ×2 (00:46→23:47)
[2022-04-26] MEDS: ONDANSETRON HCL/PF 4 MG/2 ML VIAL IVP PRN (03:03)
--- NOTE | 2022-04-26 03:03 | NUR ---
RN NOTE PT COMPLAINED OF NAUSEA. ADMINISTERED ZOFRAN 4 MG FOR NAUSEA ORDERED. ALL OTHER NEEDS MET AT THIS TIME.
[2022-04-26] MEDS: METRONIDAZOLE 500MG/ NS 100ML 500 MG in PREMIX 1 EA IV SCH ×4 (04:09→21:50)
[2022-04-26] MEDS: MORPHINE SULFATE INJ 4 MG/ML DISP.SYRIN IV PRN (05:38)
--- NOTE | 2022-04-26 05:38 | NUR ---
RN NOTE PT COMPLAINED OF ABDOMINAL PAIN 07/12. ADMINISTERED MORPHINE 4 MG FOR SEVERE PAIN PER ORDER AND PATIENT REQUEST. MADE COMFORTABLE IN BED. ALL NEEDS MET AT THIS TIME.
--- NOTE | 2022-04-26 06:43 | NUR ---
MS RN CLOSING NOTE PATIENT LAYING IN BED, A/O X 4, ABLE TO MAKE NEEDS KNOWN. PT STABLE ON ROOM AIR. NO SOB OR S/S OF RESPIRATORY DISTRESS. BREATHING EVEN AND UNLABORED. IV ACCESS LFA # 22 G AND RAVINDER ML RUNNING NS WITH 40 mEq KCL @ 100 ML/HR. ALL DUE MEDS GIVEN ORDERED. SAFETY PRECAUTIONS IN PLACE AT ALL TIMES. BED IN LOWEST LOCKED POSITION, HOB ELEVATED, SIDE RAILS UP X2, AND CALL LIGHT AND TABLE WITHIN REACH. ALL NEEDS MET AT THIS TIME AND WILL ENDORSE TO ONCOMING NURSE FOR JUDSON.
--- NOTE | 2022-04-26 07:00 | NUR ---
MS RN OPENING NOTE PATIENT LAYING IN BED, A/O X 4, ABLE TO MAKE NEEDS KNOWN. TOLERATING WELL ON ROOM AIR WITH NO S/S RESPIRATORY DISTRESS. NO COMPLAINTS OF PAIN OR DISCOMFORT AT THIS TIME. LFA # 22G SL CLEAN, INTACT, AND INFUSING NS WITH 40 mEq KCL @ 100 ML/HR. SAFETY MEASURES IN PLACE: BED IN LOWEST LOCKED POSITION, SIDE RAILS UP X 2, CALL LIGHT WITHIN REACH. WILL CONTINUE TO MONITOR.
[2022-04-26 07:01] LABS: BASOPHILS % (AUTO) 0.4 % (0.0-2.0); EOSINOPHILS % (AUTO) 1.2 % (0.0-6.0); HEMATOCRIT 25 % (39-51); HEMOGLOBIN 8.6 g/dL (13.5-17.5); LYMPHOCYTES # (AUTO) 0.8 K/uL (0.8-4.8); LYMPHOCYTES % (AUTO) 10.7 % (20.0-44.0); MEAN CORPUSCULAR HGB CONC 35 g/dl (31.0-36.0); MEAN CORPUSCULAR VOLUME 91 fL (80-96); MONOCYTES # (AUTO) 0.6 K/uL (0.1-1.30); MONOCYTES % (AUTO) 8.2 % (2.0-12.0); NEUTROPHILS # (AUTO) 6.1 K/uL (1.8-8.9); NEUTROPHILS % (AUTO) 79.5 % (43.0-81.0); PLATELET COUNT (AUTO) 185 K/uL (150-450); RED BLOOD CELL COUNT(AUTO) 2.73 MIL/uL (4.5-6.0); WHITE BLOOD COUNT (AUTO) 7.7 K/uL (4.3-11.0)
[2022-04-26 07:30] LABS: CALCIUM, SERUM 7.4 mg/dL (8.5-10.1); PHOSPHORUS 2.3 mg/dL (2.5-4.9); POTASSIUM 3.3 mmol/L (3.5-5.1)
[2022-04-26] MEDS: POTASSIUM CHLORIDE IV SCH ×2 (07:38→17:06)
[2022-04-26] MEDS: [UNRECOGNIZED DRUG - OTHER] IV SCH ×2 (07:38→17:06)
[2022-04-26 07:40] LABS: MAGNESIUM 1.1 mg/dL (1.8-2.4)
[2022-04-26 08:00] VITALS: BP 104/68
[2022-04-26] MEDS: ENSURE ENLIVE CHOC 237 ML CAN PO SCH ×2 (08:04→16:55)
[2022-04-26] MEDS: PANTOPRAZOLE 40 MG TABLET.DR PO SCH ×2 (09:00→09:16)
[2022-04-26] MEDS: GABAPENTIN 400 MG CAPSULE PO SCH ×3 (09:00→16:55)
[2022-04-26] MEDS: MUPIROCIN OINT 2% 22 GM TUBE NS SCH ×2 (09:00→21:00)
[2022-04-26] MEDS: ARIPIPRAZOLE 5 MG TABLET PO SCH (09:00)
[2022-04-26] MEDS: ESCITALOPRAM OXALATE (10 MG) 10 MG TABLET PO SCH ×2 (09:00→09:16)
[2022-04-26] MEDS: Magnesium 1GM/D5W 100ML PREMIX 100 ML IV SCH ×6 (09:16→15:00)
[2022-04-26] MEDS: POTASSIUM CHLORIDE 20 MEQ TAB.PRT.SR PO ONE ×2 (09:30→09:56)
[2022-04-26] MEDS: CEFTRIAXONE 1 G in IV D5W 50 ML IV SCH (11:37)
[2022-04-26 16:00] VITALS: BP 97/55
[2022-04-26] MEDS ORDERED: K PHOS NEUTRAL 250 MG TABLET PO ONE (16:00)
--- NOTE | 2022-04-26 19:00 | NUR ---
MS RN CLOSING NOTE PATIENT LAYING IN BED, A/O X 4, ABLE TO MAKE NEEDS KNOWN. TOLERATING WELL ON ROOM AIR WITH NO S/S RESPIRATORY DISTRESS. NO COMPLAINTS OF PAIN OR DISCOMFORT AT THIS TIME. RFA MIDLINE CLEAN, INTACT, AND INFUSING NS WITH 50 mEq KCL @ 100 ML/HR. PATIENT HAD PULLED OUT MIDLINE DURING SHIFT, MIDLINE WAS INSERTED AGAIN IN THE EVENING WITH PATIENT STATING HE WOULD NOT PULL IT AGAIN. PATIENT WAS NOT ABLE TO RECEIVE IV FLUIDS FOR A SHORT PERIOD DURING SHIFT. CURRENT MIDLINE IS CLEAN, INTACT, AND ABLE TO INFUSE FLUIDS WITHOUT INCIDENT. SAFETY MEASURES IN PLACE: BED IN LOWEST LOCKED POSITION, SIDE RAILS UP X 2, CALL LIGHT WITHIN REACH. ALL NEEDS MET. WILL ENDORSE TO TUNNEL KILN REPAIRER FOR JUDSON.
[2022-04-26 20:00] VITALS: BP 92/46
--- NOTE | 2022-04-26 20:52 | NUR ---
RN OPENING NOTE PATIENT AWAKE IN BED. A/OX4. NO S/S OF DISTRESS, BREATHING ON ROOM AIR W/O DIFFICULTY. RAVINDER MIDLINE #18 INTACT AND PATENT RUNNIG W/ KCl 100ML/HR. SAFETY MEASURES IN PLACE: BED AT LOWEST POSITION, LOCKED, RAILS UP X2, CALL MAYNARD WITHIN REACH. WILL CONTINUE TO MONITOR PATIENT.
[2022-04-27] MEDS: [UNRECOGNIZED DRUG - OTHER] IV SCH ×2 (04:10→14:14)
[2022-04-27] MEDS: POTASSIUM CHLORIDE IV SCH ×2 (04:10→14:14)
[2022-04-27] MEDS: METRONIDAZOLE 500MG/ NS 100ML 500 MG in PREMIX 1 EA IV SCH (05:30)
[2022-04-27] MEDS: HYDROCODONE/APAP 5/325MG TABLET PO PRN (05:30)
[2022-04-27 07:20] LABS: BASOPHILS % (AUTO) 0.5 % (0.0-2.0); EOSINOPHILS % (AUTO) 1.1 % (0.0-6.0); HEMATOCRIT 25 % (39-51); HEMOGLOBIN 8.5 g/dL (13.5-17.5); LYMPHOCYTES # (AUTO) 0.8 K/uL (0.8-4.8); LYMPHOCYTES % (AUTO) 8.9 % (20.0-44.0); MEAN CORPUSCULAR HGB CONC 34 g/dl (31.0-36.0); MEAN CORPUSCULAR VOLUME 91 fL (80-96); MONOCYTES # (AUTO) 0.7 K/uL (0.1-1.30); MONOCYTES % (AUTO) 7.8 % (2.0-12.0); NEUTROPHILS # (AUTO) 6.9 K/uL (1.8-8.9); NEUTROPHILS % (AUTO) 81.7 % (43.0-81.0); PLATELET COUNT (AUTO) 185 K/uL (150-450); RED BLOOD CELL COUNT(AUTO) 2.71 MIL/uL (4.5-6.0); WHITE BLOOD COUNT (AUTO) 8.5 K/uL (4.3-11.0)
--- NOTE | 2022-04-27 07:30 | NUR ---
RN OPENING NOTE PATIENT AWAKE IN BED. A/OX4. NO S/S OF DISTRESS, BREATHING ON ROOM AIR W/O DIFFICULTY. RAVINDER MIDLINE #18 INTACT AND PATENT RUNNING W/ KCl 100ML/HR. SAFETY MEASURES IN PLACE: BED AT LOWEST POSITION, LOCKED, SIDE RAILS UP X2, CALL MAYNARD WITHIN REACH. WILL CONTINUE TO MONITOR PATIENT.
--- NOTE | 2022-04-27 07:33 | NUR ---
RN CLOSING NOTE PATIENT AWAKE IN BED. A/OX4. NO S/S OF DISTRESS; BREATHING W/O DIFFICULTY ON ROOM AIR. RAVINDER MIDLINE #18 INTACT AND PATENT W/ KCl 100ML/HR. SAFETY MEASURES IN PLACE: BED AT LOWEST POSITION, LOCKED, RAILS UP X2, CALL MAYNARD WITHIN REACH. REPORT ENDORSED TO AND ACKNOWLEDGED BY JAMILAH DAY SHIFT RN, FOR JUDSON.
[2022-04-27] MEDS: ENSURE ENLIVE CHOC 237 ML CAN PO SCH (07:37)
[2022-04-27 08:00] VITALS: BP 109/53
[2022-04-27 08:29] LABS: CALCIUM, SERUM 8.3 mg/dL (8.5-10.1); MAGNESIUM 1.3 mg/dL (1.8-2.4); PHOSPHORUS 2.6 mg/dL (2.5-4.9); POTASSIUM 3.3 mmol/L (3.5-5.1)
[2022-04-27] MEDS: MUPIROCIN OINT 2% 22 GM TUBE NS SCH (09:53)
[2022-04-27] MEDS: Magnesium 1GM/D5W 100ML PREMIX 100 ML IV SCH ×4 (09:54→13:22)
[2022-04-27] MEDS: ESCITALOPRAM OXALATE (10 MG) 10 MG TABLET PO SCH (09:55)
[2022-04-27] MEDS: PANTOPRAZOLE 40 MG TABLET.DR PO SCH (09:55)
[2022-04-27] MEDS: ARIPIPRAZOLE 5 MG TABLET PO SCH (09:55)
[2022-04-27] MEDS: GABAPENTIN 400 MG CAPSULE PO SCH ×2 (09:55→12:31)
[2022-04-27] MEDS ORDERED: POTASSIUM CHLORIDE 20 MEQ TAB.PRT.SR PO ONE (10:00)
[2022-04-27] MEDS: MORPHINE SULFATE INJ 4 MG/ML DISP.SYRIN IV PRN (10:23)
[2022-04-27] MEDS: CEFTRIAXONE 1 G in IV D5W 50 ML IV SCH (11:41)
[2022-04-27] MEDS ORDERED: METRONIDAZOLE 500 MG TABLET PO SCH (13:00)
--- NOTE | 2022-04-27 15:44 | NUR ---
DISCHARGE NOTE REVIEWED DISCHARGE INSTRUCTIONS WITH PT. PT VERBALIZED UNDERSTANDING. PT DISCHARGED VIA GURNEY WITH BELONGINGS, PRESCRIPTIONA AND INSTRUCTION. IV PREVIOUSLY DISCONTINUED. PT LEFT HOSPITAL TO ASS[facility]ED LIVING. V/S: BP 109/53, P 70, RR 18, T 98.2, SPO2 98.
== END 2022-04-27 15:45 | DRG 871 ==
LOC: MED 23:09
PROVIDERS: ADMIT Nurse Practitioner Acute Care; ATTEND Student in an Organized Health Care Education/Training Program
PROC: 05HB33Z Insertion of Infusion Device into Right Basilic Vein, Percutaneous Approach (ICD-10-PCS; principal; 2022-04-25)
PROC: 05H933Z Insertion of Infusion Device into Right Brachial Vein, Percutaneous Approach (ICD-10-PCS; 2022-04-26)
DX: A41.9 Sepsis, unspecified organism (principal); N17.0 Acute kidney failure with tubular necrosis; K85.90 Acute pancreatitis without necrosis or infection, unspecified; K50.90 Crohn's disease, unspecified, without complications; E87.1 Hypo-osmolality and hyponatremia; Z93.2 Ileostomy status; Z79.899 Other long term (current) drug therapy; K52.9 Noninfective gastroenteritis and colitis, unspecified; E86.1 Hypovolemia; Z95.0 Presence of cardiac pacemaker; Z86.79 Personal history of other diseases of the circulatory system; H54.8 Legal blindness, as defined in USA; E87.6 Hypokalemia; Z90.49 Acquired absence of other specified parts of digestive tract; N20.0 Calculus of kidney; E83.42 Hypomagnesemia; D63.8 Anemia in other chronic diseases classified elsewhere; R91.1 Solitary pulmonary nodule; F32.A Depression, unspecified
CPT/HCPCS: 36410; 36415; 74018; 76770-TC; 80048-TC; 80061-TC; 80076-TC; 83540-TC; 83690-TC; 83735-TC; 84100-TC; 85025-TC; 87081-TC; 97116-TC; 97530-TC; A4216; G0378; J0696; J2270; J2405; J3475; J3480; J3490; J7030; J7040; J7050; J7060

== ENCOUNTER 2022-05-02 22:22 | Inpatient (IN) | payer MEDICARE, OTHER ==
[2022-05-01 21:30] VITALS: BP 73/44
[~2022-05-02] VITALS: Ht 162.6 cm; Wt 49.9 kg
[~2022-05-02 22:22] MED LIST: ARIP10TA9 PO; ESCI20TA PO; GABA-536 PO; PANT40TA49 PO
[2022-05-02] MEDS ORDERED: ONDANSETRON HCL/PF 4 MG/2 ML VIAL IVP PRN (23:00)
[2022-05-02] MEDS ORDERED: MAG HYDROX/AL HYDROX/SIMETH 30 ML UDC PO PRN (23:00)
[2022-05-02] MEDS ORDERED: ZOLPIDEM TARTRATE 5 MG TABLET PO PRN (23:00)
[2022-05-02] MEDS ORDERED: MAGNESIUM HYDROXIDE 30 ML UDC PO PRN (23:00)
[2022-05-02] MEDS ORDERED: MORPHINE SULFATE INJ 2 MG/ML DISP.SYRIN IV PRN (23:00)
[2022-05-02] MEDS ORDERED: ACETAMINOPHEN 325 MG TABLET PO PRN (23:00)
[2022-05-02] MEDS ORDERED: Z GUARD REMEDY 4 OZ OINT TP PRN (23:00)
--- NOTE | 2022-05-02 23:00 | NUR ---
MS RN NOTE PATIENT'S BLOOD PRESSURE LOW. BP: 73/44, HR: 77. SIZE WORKER SENTHIL ABDUL AT BEDSIDE AND AWARE, ORDERED IV FLUIDS
--- NOTE | 2022-05-02 23:15 | NUR ---
MS [place] MACHINE OPERATOR NOTE PATIENT ARRIVED ON UNIT FROM [facility]. PATIENT ALERT/ORIENTED X 3, PT ABLE TO MAKE NEEDS KNOWN. PATIENT STABLE ON RA, NO S/S OF DISTRESS OR SOB NOTED, BREATHING EVEN AND UNLABORED. PATIENT HAS NO IV ACCESS, PER EMT'S PATIENT PULLED OUT AT [facility] AND NEW IV WAS NOT INSERTED. PATIENT LEGALLY BLIND BUT ABLE TO SEE SHAPES FROM RIGHT EYE. PATIENT HAS COLOSTOMY BAG ON LEFT LOWER QUADRANT, NO BM NOTED, PER PATIENT COLOSTOMY BAG WAS CHANGED AT [facility] TODAY. PATIENT SKIN INTACT, HAS ABDOMINAL AND RIGHT KNEE SURGICAL SCARS AND SCAB ON LEFT FOOT. PATIENT FULLY VACCINATED FOR COVID AND FLU, HOWEVER DOESN'T REMEMBER DATES, WILL FOLLOW UP. PATIENT DENIES RECENT FALLS, PT ABLE TO AMBULATE WITH ASSISTANCE D/T BLINDNESS. SAFETY MEASURES IN PLACE: CALL LIGHT WITHIN REACH, SIDE RAILS UP X 2, BED LOCKED IN LOWEST POSITION, BED ALARM ON. WILL CONTINUE TO MONITOR PATIENT.
--- NOTE | 2022-05-03 00:19 | NUR ---
MS RN NOTE PATIENT IS HARD STICK, UNABLE TO START IV. CHARGE NURSE ATTEMPTED X 2 BUT UNABLE TO. CALLED ER FOR RN TO COME INSERT IV
[2022-05-03] MEDS: IV NS 0.9% 1,000 ML IV PRN ×2 (00:45→19:57)
[2022-05-03] MEDS ORDERED: CEFTRIAXONE 1 G VIAL ONE (00:47)
[2022-05-03 00:59] VITALS: BP 90/53
--- NOTE | 2022-05-03 00:59 | NUR ---
MS RN NOTE PATIENT COMPLAINING OF 8/10 ABDOMINAL PAIN, UNABLE TO GIVE MORPHINE D/T BP OF 90/53. IV FLUIDS NOW RUNNING. WILL GIVE NORCO 5-325 MG FOR PAIN MANAGEMENT
[2022-05-03] MEDS: HYDROCODONE/APAP 5/325MG TABLET PO PRN ×4 (01:04→12:11)
[2022-05-03] MEDS: CEFTRIAXONE 1 G in IV D5W 50 ML IV SCH ×2 (01:08→22:46)
[2022-05-03 05:12] VITALS: BP 100/59
[2022-05-03 06:32] LABS: BASOPHILS % (AUTO) 0.5 % (0.0-2.0); EOSINOPHILS % (AUTO) 0.5 % (0.0-6.0); HEMATOCRIT 25 % (39-51); HEMOGLOBIN 8.7 g/dL (13.5-17.5); LYMPHOCYTES # (AUTO) 0.9 K/uL (0.8-4.8); LYMPHOCYTES % (AUTO) 12.7 % (20.0-44.0); MEAN CORPUSCULAR HGB CONC 35 g/dl (31.0-36.0); MEAN CORPUSCULAR VOLUME 92 fL (80-96); MONOCYTES # (AUTO) 0.9 K/uL (0.1-1.30); MONOCYTES % (AUTO) 12.8 % (2.0-12.0); NEUTROPHILS # (AUTO) 5.2 K/uL (1.8-8.9); NEUTROPHILS % (AUTO) 73.5 % (43.0-81.0); PLATELET COUNT (AUTO) 193 K/uL (150-450); RED BLOOD CELL COUNT(AUTO) 2.73 MIL/uL (4.5-6.0); WHITE BLOOD COUNT (AUTO) 7.1 K/uL (4.3-11.0)
--- NOTE | 2022-05-03 07:05 | NUR ---
MS RN CLOSING NOTE PATIENT SLEEPING IN BED, ALERT/ORIENTED X 3, PT ABLE TO MAKE NEEDS KNOWN. PATIENT STABLE ON RA, NO S/S OF DISTRESS OR SOB NOTED, BREATHING EVEN AND UNLABOERD. PATIENT LEGALLY BLIND BUT ABLE TO SEE "SHAPES". PATIENT AMBULATORY TO BATHROOM WITH ASSIST, STEADY GAIT, USES CANE AT FACILITY. PATIENT EMPTIES ILEOSTOMY BAG ON HIS OWN. IV ACCESS ON LFA #24G INTACT AND INFUSING NS @ 100 ML/HR. MEDICATIONS GIVEN ORDERED, PATIENT NEEDS MET THROUGHOUT SHIFT. SAFETY MEASURES IN PLACE: CALL LIGHT WITHIN REACH, SIDE RAILS UP X 2, BED LOCKED IN LOWEST POSITION, BED ALARM ON. WILL CONTINUE TO MONITOR PATIENT
[2022-05-03 07:33] LABS: CALCIUM, SERUM 8.6 mg/dL (8.5-10.1); CREATININE 2.5 mg/dL (0.6-1.3); MAGNESIUM 1.3 mg/dL (1.8-2.4); PHOSPHORUS 4.1 mg/dL (2.5-4.9); POTASSIUM 3.5 mmol/L (3.5-5.1)
[2022-05-03 08:00] VITALS: BP 82/44
[2022-05-03] MEDS ORDERED: PANTOPRAZOLE 40 MG TABLET.DR PO SCH (09:00)
[2022-05-03] MEDS: ARIPIPRAZOLE 5 MG TABLET PO SCH ×2 (09:20→09:25)
[2022-05-03] MEDS: ESCITALOPRAM OXALATE (10 MG) 10 MG TABLET PO SCH ×2 (09:21→09:25)
[2022-05-03] MEDS: PANTOPRAZOLE 40 MG TABLET.DR PO SCH ×2 (09:21→09:25)
[2022-05-03] MEDS: Magnesium 1GM/D5W 100ML PREMIX 100 ML IV SCH ×4 (11:58→18:00)
--- NOTE | 2022-05-03 13:06 | NUR ---
RN note patient asked for the pain medications because developed pain of his abdomen 05/11 , Menan 5/325 mg was brought to the patient , he refused to take it, with out reason , then demanded to disconnect his IV hydration and refused to have infusion of the Magnesium 1 mg as was scheduled , I asked what is the reason patient keep being quite., left the room will check on patient in an hour Addendum: 05/03/22 at 1318 by GARFIELD BULL RN Medications were returned to the return box , charge nurse witness and aware of the patient's act
[2022-05-03 16:00] VITALS: BP 88/44
--- NOTE | 2022-05-03 16:02 | NUR ---
RN note Patient pulled out his IV acces of the [employer] saline lock ,2 attempts to start peripheral iv was unsuccessful . Order placed for mid line .
--- NOTE | 2022-05-03 18:43 | NUR ---
RN closing note Patient is alert , oriented times 3, ambulates to the restroom to urinate with assistance. Patient has ileostomy , able to empty it independently , c/o abdomen pain but refused pain medication.Patient is on room air breathing un labored, no sighns of distress, has mid line of the JES[employer]EL NS running at 100 ml/hr. All medications were administered .Bed is at lowest position , bed side rails are up , call light within reach
[2022-05-03 20:00] VITALS: BP 94/45
--- NOTE | 2022-05-03 20:15 | NUR ---
MS/TELE/RN PATIENT IS AWAKE, ALERT, ORIENTED, NO C/O PAIN, NO SIGNS OF DISTRESS NOTED, CALL LIGHT IN REACH, FALL PRECAUTIONS PER PROTOCOL IMPLEMENTED, WILL MONITOR.
[2022-05-04 06:36] LABS: BASOPHILS # (AUTO) 0.1 K/uL (0.0-0.2); BASOPHILS % (AUTO) 0.8 % (0.0-2.0); EOSINOPHILS % (AUTO) 1.5 % (0.0-6.0); HEMATOCRIT 24 % (39-51); HEMOGLOBIN 8.2 g/dL (13.5-17.5); LYMPHOCYTES % (AUTO) 12.9 % (20.0-44.0); MEAN CORPUSCULAR HGB CONC 34 g/dl (31.0-36.0); MEAN CORPUSCULAR VOLUME 94 fL (80-96); MONOCYTES # (AUTO) 0.9 K/uL (0.1-1.30); NEUTROPHILS # (AUTO) 5.8 K/uL (1.8-8.9); NEUTROPHILS % (AUTO) 73.8 % (43.0-81.0); PLATELET COUNT (AUTO) 192 K/uL (150-450); RED BLOOD CELL COUNT(AUTO) 2.59 MIL/uL (4.5-6.0); WHITE BLOOD COUNT (AUTO) 7.8 K/uL (4.3-11.0)
--- NOTE | 2022-05-04 06:40 | NUR ---
MS/TELE/RN PATIENT IS AWAKE, NO C/O PAIN, NO SIGNS OF DISTRESS NOTED, CALL LIGHT IN REACH, ALL NEEDS ATTENDED AT THIS TIME, WILL CONTINUE TO MONITOR.
--- NOTE | 2022-05-04 07:00 | NUR ---
MS RN OPENING NOTES PATIENT LAYING IN BED, A/O X 3, ABLE TO MAKE NEEDS KNOWN. TOLERATING WELL ON ROOM AIR WITH NO S/S RESPIRATORY DISTRESS. JESUS MANUEL WITH NS INFUSING @ 100 ML/HR. ILEOSTOMY IN PLACE DRAINING LIQUID STOOL. SAFETY MEASURES IN PLACE: BED IN LOWEST LOCKED POSITION, SIDE RAILS UP X 2, CALL LIGHT WITHIN REACH. WILL CONTINUE TO MONITOR.
[2022-05-04 07:11] LABS: CALCIUM, SERUM 8.1 mg/dL (8.5-10.1); CREATININE 1.4 mg/dL (0.6-1.3); MAGNESIUM 1.8 mg/dL (1.8-2.4); POTASSIUM 3.2 mmol/L (3.5-5.1)
[2022-05-04 08:00] VITALS: BP 110/62
[2022-05-04] MEDS: HYDROCODONE/APAP 5/325MG TABLET PO PRN (08:31)
[2022-05-04] MEDS ORDERED: POTASSIUM CHLORIDE 20 MEQ TAB.PRT.SR PO ONE (10:00)
[2022-05-04] MEDS ORDERED: POTASSIUM CHLORIDE 20 MEQ TAB.PRT.SR PO SCH (11:00)
[2022-05-04] MEDS: IV NS 0.9% 1,000 ML IV PRN (11:29)
--- NOTE | 2022-05-04 13:00 | NUR ---
BURGLAR ALARM SUPERINTENDENT NOTES PATIENT MADE AWARE OF MD DISCHARGE ORDERS AND INSTRUCTIONS. PATIENT VERBALIZED UNDERSTANDING OF MD DISCHARGE INSTRUCTIONS. BELONGINGS LIST READ OFF TO PATIENT, AND VERBALIZED POSSESSION OF ALL BELONGINGS. PATIENT WAS UNABLE TO SIGN EITHER SHEET DUE TO BLINDNESS, COSIGN OBTAINED WITH SECOND NURSE. IV LINE AND ID BAND REMOVED. PATIENT WAS TRANSPORTED FROM UNIT BY 2 MANAGER UTILIZATION EN ROUTE TO ASSISTED LIVING FACILITY. COPIES OF ALL PAPERWORK PROVIDED TO PATIENT. PATIENT STABLE AT TIME OF DISCHARGE.
== END 2022-05-04 13:00 | DRG 391 ==
LOC: MED 22:22
PROVIDERS: ADMIT Internal Medicine; ATTEND Internal Medicine
PROC: 05H933Z Insertion of Infusion Device into Right Brachial Vein, Percutaneous Approach (ICD-10-PCS; principal; 2022-05-03)
DX: A09 Infectious gastroenteritis and colitis, unspecified (principal); N17.0 Acute kidney failure with tubular necrosis; N39.0 Urinary tract infection, site not specified; E87.1 Hypo-osmolality and hyponatremia; K50.90 Crohn's disease, unspecified, without complications; K21.9 Gastro-esophageal reflux disease without esophagitis; Z79.899 Other long term (current) drug therapy; B96.89 Other specified bacterial agents as the cause of diseases classified elsewhere; Z90.49 Acquired absence of other specified parts of digestive tract; Z93.2 Ileostomy status; F29 Unspecified psychosis not due to a substance or known physiological condition; N20.0 Calculus of kidney; E86.1 Hypovolemia; Z95.0 Presence of cardiac pacemaker; Z86.79 Personal history of other diseases of the circulatory system; F32.A Depression, unspecified
CPT/HCPCS: 36410; 36415; 76770-TC; 80048-TC; 83735-TC; 84100-TC; 85025-TC; 87081-TC; G0378; J0696; J2405; J3475; J7030; J7060

== ENCOUNTER 2023-06-25 18:39 | Inpatient (IN) | payer MEDICARE, OTHER ==
[~2023-06-25] VITALS: Ht 162.6 cm; Wt 52.6 kg
[2023-06-25] MEDS ORDERED: OCTR100V SQ (19:12)
[2023-06-25] MEDS ORDERED: MIRT7.5T10 PO (19:12)
[2023-06-25] MEDS ORDERED: POTA20TA83 PO (19:12)
[2023-06-25] MEDS ORDERED: IPRA3AMP23 IH (19:12)
[2023-06-25] MEDS ORDERED: LIPA1CAP15 PO (19:12)
[2023-06-25] MEDS ORDERED: MAGN400T26 PO (19:12)
[2023-06-25] MEDS ORDERED: CRAN425C6 PO (19:12)
[2023-06-25] MEDS ORDERED: TIMO5DRO18 EACHEYE (19:12)
[2023-06-25] MEDS ORDERED: TAMS-12 PO (19:12)
[2023-06-25] MEDS ORDERED: ACET-868 PO (19:12)
[2023-06-25] MEDS ORDERED: SACC250C9 PO (19:12)
[2023-06-25] MEDS ORDERED: CALC500T13 PO (19:12)
[2023-06-25] MEDS ORDERED: LEVA1.2528 IH (19:12)
[2023-06-25] MEDS ORDERED: ONDA4TAB5 PO (19:12)
[2023-06-25] MEDS ORDERED: COLE1TAB PO (19:12)
[2023-06-25] MEDS ORDERED: POLY17PO4 PO (19:12)
[2023-06-25] MEDS ORDERED: OXYC-128 PO (19:12)
[2023-06-25] MEDS ORDERED: MULT-594 PO (19:12)
[2023-06-25] MEDS ORDERED: MIDO10TA PO (19:12)
[2023-06-25 19:45] LABS: BASOPHILS % (AUTO) 0.6 % (0.0-2.0); EOSINOPHILS # (AUTO) 0.1 K/uL (0.0-0.7); EOSINOPHILS % (AUTO) 1.5 % (0.0-6.0); HEMATOCRIT 37 % (39-51); HEMOGLOBIN 12.6 g/dL (13.5-17.5); LYMPHOCYTES # (AUTO) 1.1 K/uL (0.8-4.8); LYMPHOCYTES % (AUTO) 15.9 % (20.0-44.0); MEAN CORPUSCULAR HEMOGLOBIN 30 PG (26.0-33.0); MEAN CORPUSCULAR HGB CONC 34 g/dl (31.0-36.0); MEAN CORPUSCULAR VOLUME 90 fL (80-96); MONOCYTES # (AUTO) 0.8 K/uL (0.1-1.30); MONOCYTES % (AUTO) 11.2 % (2.0-12.0); NEUTROPHILS # (AUTO) 4.9 K/uL (1.8-8.9); NEUTROPHILS % (AUTO) 70.8 % (43.0-81.0); PLATELET COUNT (AUTO) 187 K/uL (150-450); RED BLOOD CELL COUNT(AUTO) 4.15 MIL/uL (4.5-6.0); RED CELL DISTRIBUTION WIDTH 13.5 % (11.5-15.0); WHITE BLOOD COUNT (AUTO) 6.9 K/uL (4.3-11.0)
[2023-06-25 19:55] LABS: CALCIUM, SERUM 9.2 mg/dL (8.5-10.1); CARBON DIOXIDE 25 mmol/L (21-32); CHLORIDE 106 mmol/L (98-107); CREATININE 1.2 mg/dL (0.6-1.3); GLUCOSE 97 mg/dL (74-106); POTASSIUM 3.6 mmol/L (3.5-5.1); SODIUM SERUM 138 mmol/L (136-145); UREA NITROGEN, BLOOD 18 mg/dL (7-18)
[2023-06-25 20:01] LABS: ALANINE AMINOTRANSFERASE 41 U/L (12-78); ALBUMIN 3.7 g/dL (3.4-5.0); ALCOHOL, BLOOD < 3 mg/dL (0-10); ALKALINE PHOSPHATASE 128 U/L (46-116); ASPARTATE AMINOTRANSFERASE 28 U/L (15-37); BILIRUBIN,DIRECT 0.2 mg/dL (0.0-0.2); BILIRUBIN,TOTAL 0.7 mg/dL (0.2-1.0)
[2023-06-25 20:34] LABS: ACETAMINOPHEN <10 ug/ml (10-30); SALICYLATE < 2.3 mg/dL (2.8-20.0)
[2023-06-25 22:04] LABS: APPEARANCE,URINE CLEAR (CLEAR); BILIRUBIN,URINE NEGATIVE (NEGATIVE); BLOOD, URINE NEGATIVE Ery/uL (NEGATIVE); COLOR,URINE YELLOW (YELLOW); KETONES,URINE NEGATIVE (NEGATIVE); LEUKOCYTE ESTERASE ,URINE TRACE (NEGATIVE); NITRITE, URINE NEGATIVE (NEGATIVE); PROTEIN,URINE 1+ mg/dl (NEGATIVE); UGLUCOSE NEGATIVE (NEGATIVE); UROBILINOGEN,URINE 0.2 EU/dL (0.2)
[2023-06-25 22:28] LABS: AMPHETAMINE, URINE NEGATIVE (NEGATIVE); BARBITURATE, URINE NEGATIVE (NEGATIVE); BENZODIAZEPINE, URINE NEGATIVE (NEGATIVE); CANNABINOID, URINE NEGATIVE (NEGATIVE); COCCAINE, URINE NEGATIVE (NEGATIVE); PHENCYCLIDINE SCREEN,URINE NEGATIVE (NEGATIVE)
[2023-06-25 22:38] LABS: OPIATE, URINE POSITIVE (NEGATIVE)
[2023-06-25 22:41] LABS: ADD URINE CULTURE YES; BACTERIA,URINE Few /HPF (None Seen); RBC,URINE NONE SEEN /HPF (0-2); SQUAMOUS EPITHELIAL CELL,UR None Seen /HPF (None Seen); YEAST,URINE Moderate /HPF (None Seen)
[2023-06-25 22:42] LABS: MUCUS,URINE Few /LPF (None Seen)
[2023-06-26 00:50] VITALS: BP 133/74; TEMP 98.4; O2SAT 97
[2023-06-26] MEDS ORDERED: ONDANSETRON HCL/PF 4 MG/2 ML VIAL IVP PRN (05:30)
[2023-06-26] MEDS ORDERED: ZOLPIDEM TARTRATE 5 MG TABLET PO PRN (05:30)
[2023-06-26] MEDS ORDERED: MAG HYDROX/AL HYDROX/SIMETH 30 ML UDC PO PRN (05:30)
[2023-06-26] MEDS ORDERED: MAGNESIUM HYDROXIDE 30 ML UDC PO PRN (05:30)
[2023-06-26] MEDS ORDERED: ENOXAPARIN SODIUM 40 MG/0.4 ML DISP.SYRIN SQ SCH (05:30)
[2023-06-26] MEDS ORDERED: Z GUARD REMEDY 4 OZ OINT TP PRN (05:30)
[2023-06-26] MEDS ORDERED: ACETAMINOPHEN 325 MG TABLET PO PRN (05:30)
[2023-06-26] MEDS ORDERED: oxyCODONE/APAP (5/325 MG) 1 UDTAB TABLET PO PRN (06:00)
[2023-06-26 07:30] VITALS: BP 147/84; TEMP 98; O2SAT 98
[2023-06-26] MEDS ORDERED: PANTOPRAZOLE 40 MG TABLET.DR PO SCH (07:30)
[2023-06-26] MEDS ORDERED: POLYETHYLENE GLYCOL 3350 17 GM POWD.PACK PO PRN (11:00)
[2023-06-26] MEDS ORDERED: IPRATROPIUM NEB FS 0.5 MG/2.5 ML AMPUL.NEB NEB PRN (11:30)
[2023-06-26] MEDS ORDERED: ALBUTEROL FS 2.5 MG/3 ML VIAL.NEB NEB PRN (11:30)
[2023-06-26 12:20] VITALS: BP 105/58; TEMP 98.1; O2SAT 99
[2023-06-26 12:36] VITALS: BP 104/58
[2023-06-26] MEDS ORDERED: LIPASE/PROTEASE/AMYLASE 1 EACH CAPSULE.DR PO SCH (13:00)
[2023-06-26] MEDS ORDERED: MAGNESIUM OXIDE 400 MG TABLET PO SCH (13:00)
[2023-06-26] MEDS ORDERED: MIDODRINE HCL (5MG) 5 MG TABLET PO SCH (13:00)
[2023-06-26] MEDS ORDERED: ZOLP5TAB8 PO (14:04)
[2023-06-26] MEDS ORDERED: MULT-447 PO (14:04)
[2023-06-26] MEDS ORDERED: ALLA266C2 TP (14:04)
[2023-06-26] MEDS ORDERED: LIPA1CAP27 PO (14:04)
[2023-06-26] MEDS ORDERED: MAGN400O6 PO ×2 (14:04)
[2023-06-26] MEDS ORDERED: PANT40TA2 PO (14:04)
[2023-06-26] MEDS ORDERED: ENOX40DI SQ (14:04)
[2023-06-26] MEDS ORDERED: TIMOLOL 0.5% SOLN OPHTH 5 ML BOTTLE EACHEYE SCH (17:00)
[2023-06-26] MEDS ORDERED: COLESTIPOL HCL 1 GM PO SCH (17:00)
[2023-06-26] MEDS ORDERED: MIRTAZAPINE 15 MG TABLET PO SCH (22:00)
[2023-06-27] MEDS ORDERED: POTASSIUM CHLORIDE 20 MEQ TAB.PRT.SR PO SCH (09:00)
[2023-06-27] MEDS ORDERED: Medication Not On Formulary EA (Saccharomyces Boulardii (Probiotic) 250 MG) PO SCH (09:00)
[2023-06-27] MEDS ORDERED: ESCITALOPRAM OXALATE (10 MG) 10 MG TABLET PO SCH (09:00)
[2023-06-27] MEDS ORDERED: TAMSULOSIN 0.4 MG CAP.SR.24H PO SCH (09:00)
[2023-06-27] MEDS ORDERED: Medication Not On Formulary EA (Cranberry Extract (Cranberry) 425 MG) PO SCH (09:00)
[2023-06-27] MEDS ORDERED: CALCIUM CARBONATE 500 MG TAB.CHEW PO SCH (09:00)
[2023-06-27] MEDS ORDERED: MULTIVIT W/MINERALS 1 TAB TABLET PO SCH (09:00)
== END 2023-06-26 13:16 | DRG 640 ==
LOC: ER 18:48 → MED 23:22
PROVIDERS: ADMIT Nurse Practitioner Family; ATTEND Nurse Practitioner Family
DX: R62.7 Adult failure to thrive (principal); E43 Unspecified severe protein-calorie malnutrition; R45.851 Suicidal ideations; K50.90 Crohn's disease, unspecified, without complications; Z68.1 Body mass index [BMI] 19.9 or less, adult; D64.9 Anemia, unspecified; F32.9 Major depressive disorder, single episode, unspecified; H54.8 Legal blindness, as defined in USA; Z93.2 Ileostomy status; Z95.0 Presence of cardiac pacemaker; Z90.49 Acquired absence of other specified parts of digestive tract; Z73.6 Limitation of activities due to disability; Z20.822 Contact with and (suspected) exposure to COVID-19
CPT/HCPCS: 36415; 71045-TC; 80048-TC; 80076-TC; 81001; 83735-TC; 85025-TC; 87086-TC; 92526; 92611-TC; 97110-TC; 97116-TC; 97530-TC; C9803; G0378; G0480

== ENCOUNTER 2023-06-26 13:29 | Inpatient (IN) | payer MEDICARE ==
[~2023-06-26] VITALS: Ht 162.6 cm; Wt 54.4 kg
[~2023-06-26 13:29] MED LIST changes: +ACET-868 PO; +CALC500T13 PO; +COLE1TAB PO; +CRAN425C6 PO; +IPRA3AMP23 IH; +LEVA1.2528 IH; +LIPA1CAP15 PO; +MAGN400T26 PO; +MIDO10TA PO; +MIRT7.5T10 PO; +MULT-594 PO; +OCTR100V SQ; +ONDA4TAB5 PO; +OXYC-128 PO; +POLY17PO4 PO; +POTA20TA83 PO; +SACC250C9 PO; +TAMS-12 PO; +TIMO5DRO18 EACHEYE
[2023-06-26] MEDS ORDERED: ENOX40DI SQ (14:04)
[2023-06-26] MEDS ORDERED: MULT-447 PO (14:04)
[2023-06-26] MEDS ORDERED: MAGN400O6 PO ×2 (14:04)
[2023-06-26] MEDS ORDERED: PANT40TA2 PO (14:04)
[2023-06-26] MEDS ORDERED: LIPA1CAP27 PO (14:04)
[2023-06-26] MEDS ORDERED: ALLA266C2 TP (14:04)
[2023-06-26] MEDS ORDERED: ZOLP5TAB8 PO (14:04)
[2023-06-26] MEDS ORDERED: BLOOD SUGAR DIAGNOSTIC 1 EACH STRIP IN ONE (15:00)
[2023-06-26] MEDS ORDERED: LORAZEPAM 0.5 MG TABLET PO PRN (15:00)
[2023-06-26] MEDS ORDERED: MAGNESIUM HYDROXIDE 30 ML UDC PO PRN ×2 (15:00→16:00)
[2023-06-26] MEDS ORDERED: ACETAMINOPHEN 325 MG TABLET PO PRN (15:00)
[2023-06-26] MEDS ORDERED: MAG HYDROX/AL HYDROX/SIMETH 30 ML UDC PO PRN (15:00)
[2023-06-26] MEDS: ESCITALOPRAM OXALATE (10 MG) 10 MG TABLET PO SCH (15:59)
[2023-06-26 16:00] VITALS: BP 141/78; TEMP 98.1; O2SAT 99
[2023-06-26] MEDS: oxyCODONE/APAP (5/325 MG) 1 UDTAB TABLET PO PRN (16:00)
[2023-06-26] MEDS ORDERED: ALBUTEROL FS 2.5 MG/3 ML VIAL.NEB NEB PRN (16:00)
[2023-06-26] MEDS ORDERED: POLYETHYLENE GLYCOL 3350 17 GM POWD.PACK PO PRN (16:00)
[2023-06-26] MEDS ORDERED: IPRATROPIUM NEB FS 0.5 MG/2.5 ML AMPUL.NEB NEB PRN (16:00)
[2023-06-26] MEDS: LIPASE/PROTEASE/AMYLASE 1 EACH CAPSULE.DR PO SCH (17:00)
[2023-06-26] MEDS: MIDODRINE HCL (5MG) 5 MG TABLET PO SCH (17:00)
[2023-06-26] MEDS ORDERED: COLESTIPOL HCL 1 GM PO SCH (17:00)
[2023-06-26] MEDS: TIMOLOL 0.5% SOLN OPHTH 5 ML BOTTLE EACHEYE SCH (17:14)
[2023-06-26] MEDS: MAGNESIUM OXIDE 400 MG TABLET PO SCH (17:18)
[2023-06-26] MEDS: QUETIAPINE FUMARATE 25 MG TABLET PO SCH (22:03)
[2023-06-27] MEDS: oxyCODONE/APAP (5/325 MG) 1 UDTAB TABLET PO PRN ×2 (01:07→12:18)
[2023-06-27 07:59] LABS: ALBUMIN 4.4 g/dL (3.4-5.0); BILIRUBIN,TOTAL 0.9 mg/dL (0.2-1.0); CALCIUM, SERUM 9.8 mg/dL (8.5-10.1); CREATININE 1.5 mg/dL (0.6-1.3); POTASSIUM 4.5 mmol/L (3.5-5.1); TOTAL PROTEIN, SERUM 8.2 g/dL (6.4-8.2)
[2023-06-27 08:00] VITALS: BP 110/73; TEMP 98.4; O2SAT 99
[2023-06-27 08:04] LABS: CHOLESTEROL 139 mg/dL (<200); HDL CHOLESTEROL 50 mg/dL (40-60); LDL 72 mg/dL (0-99); TRIGLYCERIDES 93 mg/dL (30-150)
[2023-06-27] MEDS: LIPASE/PROTEASE/AMYLASE 1 EACH CAPSULE.DR PO SCH ×3 (08:55→17:00)
[2023-06-27] MEDS: ENOXAPARIN SODIUM 40 MG/0.4 ML DISP.SYRIN SQ SCH (08:55)
[2023-06-27] MEDS: MIDODRINE HCL (5MG) 5 MG TABLET PO SCH ×3 (08:55→17:47)
[2023-06-27] MEDS: POTASSIUM CHLORIDE 20 MEQ TAB.PRT.SR PO SCH (08:56)
[2023-06-27] MEDS: MAGNESIUM OXIDE 400 MG TABLET PO SCH ×3 (08:56→17:47)
[2023-06-27] MEDS: TIMOLOL 0.5% SOLN OPHTH 5 ML BOTTLE EACHEYE SCH ×2 (08:58→17:45)
[2023-06-27] MEDS: PANTOPRAZOLE 40 MG TABLET.DR PO SCH (09:00)
[2023-06-27] MEDS ORDERED: Medication Not On Formulary EA (Saccharomyces Boulardii (Probiotic) 250 MG) PO SCH (09:00)
[2023-06-27] MEDS: MULTIVIT W/MINERALS 1 TAB TABLET PO SCH (09:00)
[2023-06-27] MEDS: CALCIUM CARBONATE 500 MG TAB.CHEW PO SCH (09:01)
[2023-06-27] MEDS: TAMSULOSIN 0.4 MG CAP.SR.24H PO SCH (09:01)
[2023-06-27] MEDS: ESCITALOPRAM OXALATE (10 MG) 10 MG TABLET PO SCH (12:18)
[2023-06-27 15:05] LABS: BASOPHILS # (AUTO) 0.1 K/uL (0.0-0.2); BASOPHILS % (AUTO) 0.6 % (0.0-2.0); EOSINOPHILS # (AUTO) 0.1 K/uL (0.0-0.7); EOSINOPHILS % (AUTO) 0.6 % (0.0-6.0); HEMATOCRIT 42 % (39-51); LYMPHOCYTES # (AUTO) 1.3 K/uL (0.8-4.8); LYMPHOCYTES % (AUTO) 11.6 % (20.0-44.0); MEAN CORPUSCULAR HEMOGLOBIN 30 PG (26.0-33.0); MEAN CORPUSCULAR HGB CONC 33 g/dl (31.0-36.0); MEAN CORPUSCULAR VOLUME 91 fL (80-96); MONOCYTES # (AUTO) 0.8 K/uL (0.1-1.30); MONOCYTES % (AUTO) 7.7 % (2.0-12.0); NEUTROPHILS # (AUTO) 8.8 K/uL (1.8-8.9); NEUTROPHILS % (AUTO) 79.5 % (43.0-81.0); PLATELET COUNT (AUTO) 229 K/uL (150-450); RED BLOOD CELL COUNT(AUTO) 4.65 MIL/uL (4.5-6.0); RED CELL DISTRIBUTION WIDTH 13.4 % (11.5-15.0); WHITE BLOOD COUNT (AUTO) 11.1 K/uL (4.3-11.0)
[2023-06-27 15:13] LABS: CREATININE 1.9 mg/dL (0.6-1.3)
[2023-06-27 15:14] LABS: CALCIUM, SERUM 9.9 mg/dL (8.5-10.1); POTASSIUM 4.5 mmol/L (3.5-5.1)
[2023-06-27 16:00] VITALS: BP 90/56; TEMP 98.6; O2SAT 95
[2023-06-27 20:00] VITALS: BP 161/73; TEMP 96.9; O2SAT 95
[2023-06-27] MEDS: QUETIAPINE FUMARATE 25 MG TABLET PO SCH (21:09)
[2023-06-28] MEDS: oxyCODONE/APAP (5/325 MG) 1 UDTAB TABLET PO PRN ×2 (01:22→14:23)
[2023-06-28 08:00] VITALS: BP 101/70; TEMP 97.8; O2SAT 92
[2023-06-28] MEDS: ENOXAPARIN SODIUM 40 MG/0.4 ML DISP.SYRIN SQ SCH (08:17)
[2023-06-28] MEDS: CALCIUM CARBONATE 500 MG TAB.CHEW PO SCH (08:21)
[2023-06-28] MEDS: TAMSULOSIN 0.4 MG CAP.SR.24H PO SCH (08:21)
[2023-06-28] MEDS: MAGNESIUM OXIDE 400 MG TABLET PO SCH ×3 (08:21→17:29)
[2023-06-28] MEDS: MIDODRINE HCL (5MG) 5 MG TABLET PO SCH ×3 (08:22→17:29)
[2023-06-28] MEDS: MULTIVIT W/MINERALS 1 TAB TABLET PO SCH (08:22)
[2023-06-28] MEDS: POTASSIUM CHLORIDE 20 MEQ TAB.PRT.SR PO SCH (08:22)
[2023-06-28] MEDS: LIPASE/PROTEASE/AMYLASE 1 EACH CAPSULE.DR PO SCH ×3 (08:22→17:29)
[2023-06-28] MEDS: TIMOLOL 0.5% SOLN OPHTH 5 ML BOTTLE EACHEYE SCH ×2 (08:27→17:27)
[2023-06-28] MEDS: PANTOPRAZOLE 40 MG TABLET.DR PO SCH (08:29)
[2023-06-28 12:32] LABS: BASOPHILS # (AUTO) 0.1 K/uL (0.0-0.2); BASOPHILS % (AUTO) 0.7 % (0.0-2.0); EOSINOPHILS % (AUTO) 0.2 % (0.0-6.0); HEMATOCRIT 44 % (39-51); HEMOGLOBIN 14.8 g/dL (13.5-17.5); LYMPHOCYTES # (AUTO) 1.6 K/uL (0.8-4.8); LYMPHOCYTES % (AUTO) 10.9 % (20.0-44.0); MEAN CORPUSCULAR HEMOGLOBIN 30 PG (26.0-33.0); MEAN CORPUSCULAR HGB CONC 34 g/dl (31.0-36.0); MEAN CORPUSCULAR VOLUME 90 fL (80-96); MONOCYTES # (AUTO) 1.1 K/uL (0.1-1.30); MONOCYTES % (AUTO) 7.6 % (2.0-12.0); NEUTROPHILS # (AUTO) 12.1 K/uL (1.8-8.9); NEUTROPHILS % (AUTO) 80.6 % (43.0-81.0); PLATELET COUNT (AUTO) 247 K/uL (150-450); RED BLOOD CELL COUNT(AUTO) 4.94 MIL/uL (4.5-6.0); RED CELL DISTRIBUTION WIDTH 13.6 % (11.5-15.0); WHITE BLOOD COUNT (AUTO) 15.1 K/uL (4.3-11.0)
[2023-06-28 12:49] LABS: ALBUMIN 4.9 g/dL (3.4-5.0); CALCIUM, SERUM 9.6 mg/dL (8.5-10.1); CREATININE 2.4 mg/dL (0.6-1.3); PHOSPHORUS 5.3 mg/dL (2.5-4.9); POTASSIUM 4.5 mmol/L (3.5-5.1); TOTAL PROTEIN, SERUM 8.9 g/dL (6.4-8.2)
[2023-06-28] MEDS: ESCITALOPRAM OXALATE (10 MG) 10 MG TABLET PO SCH (13:24)
[2023-06-28 16:00] VITALS: BP 105/62; TEMP 98; O2SAT 96
[2023-06-28] MEDS: QUETIAPINE FUMARATE 25 MG TABLET PO SCH (21:11)
[2023-06-28 22:05] VITALS: BP 120/67; TEMP 97.8; O2SAT 96
[2023-06-28 22:50] LABS: APPEARANCE,URINE CLEAR (CLEAR); BILIRUBIN,URINE NEGATIVE (NEGATIVE); BLOOD, URINE NEGATIVE Ery/uL (NEGATIVE); COLOR,URINE DARK YELLOW (YELLOW); KETONES,URINE TRACE mg/dL (NEGATIVE); LEUKOCYTE ESTERASE ,URINE TRACE (NEGATIVE); NITRITE, URINE NEGATIVE (NEGATIVE); PROTEIN,URINE NEGATIVE (NEGATIVE); UGLUCOSE NEGATIVE (NEGATIVE); UROBILINOGEN,URINE 0.2 EU/dL (0.2)
[2023-06-29] MEDS: oxyCODONE/APAP (5/325 MG) 1 UDTAB TABLET PO PRN (04:47)
[2023-06-29 07:01] LABS: BASOPHILS % (AUTO) 0.3 % (0.0-2.0); EOSINOPHILS % (AUTO) 0.3 % (0.0-6.0); HEMATOCRIT 44 % (39-51); HEMOGLOBIN 14.7 g/dL (13.5-17.5); LYMPHOCYTES # (AUTO) 2.1 K/uL (0.8-4.8); LYMPHOCYTES % (AUTO) 13.7 % (20.0-44.0); MEAN CORPUSCULAR HEMOGLOBIN 30 PG (26.0-33.0); MEAN CORPUSCULAR HGB CONC 33 g/dl (31.0-36.0); MEAN CORPUSCULAR VOLUME 90 fL (80-96); MONOCYTES # (AUTO) 1.5 K/uL (0.1-1.30); MONOCYTES % (AUTO) 9.5 % (2.0-12.0); NEUTROPHILS % (AUTO) 76.2 % (43.0-81.0); PLATELET COUNT (AUTO) 287 K/uL (150-450); RED BLOOD CELL COUNT(AUTO) 4.94 MIL/uL (4.5-6.0); RED CELL DISTRIBUTION WIDTH 13.6 % (11.5-15.0); WHITE BLOOD COUNT (AUTO) 15.7 K/uL (4.3-11.0)
[2023-06-29 07:20] LABS: ALBUMIN 4.9 g/dL (3.4-5.0); BILIRUBIN,TOTAL 1.1 mg/dL (0.2-1.0); CALCIUM, SERUM 9.3 mg/dL (8.5-10.1); CREATININE 3.1 mg/dL (0.6-1.3); MAGNESIUM 2.2 mg/dL (1.8-2.4); PHOSPHORUS 6.4 mg/dL (2.5-4.9)
[2023-06-29 08:00] VITALS: BP 99/68; TEMP 97.7; O2SAT 97
[2023-06-29] MEDS: PANTOPRAZOLE 40 MG TABLET.DR PO SCH (08:19)
[2023-06-29] MEDS: ENOXAPARIN SODIUM 40 MG/0.4 ML DISP.SYRIN SQ SCH (08:19)
[2023-06-29] MEDS: MULTIVIT W/MINERALS 1 TAB TABLET PO SCH (08:19)
[2023-06-29] MEDS: MAGNESIUM OXIDE 400 MG TABLET PO SCH ×2 (08:20→13:00)
[2023-06-29] MEDS: LIPASE/PROTEASE/AMYLASE 1 EACH CAPSULE.DR PO SCH ×2 (08:20→13:00)
[2023-06-29] MEDS: CALCIUM CARBONATE 500 MG TAB.CHEW PO SCH (08:20)
[2023-06-29] MEDS: TAMSULOSIN 0.4 MG CAP.SR.24H PO SCH (08:20)
[2023-06-29 08:21] VITALS: BP 99/68
[2023-06-29] MEDS: MIDODRINE HCL (5MG) 5 MG TABLET PO SCH ×2 (08:21→13:00)
[2023-06-29] MEDS: TIMOLOL 0.5% SOLN OPHTH 5 ML BOTTLE EACHEYE SCH (08:21)
[2023-06-29] MEDS: ESCITALOPRAM OXALATE (10 MG) 10 MG TABLET PO SCH (13:00)
[2023-06-29] MEDS ORDERED: MAG30ORA PO (13:26)
[2023-06-29] MEDS ORDERED: TAMS-12 PO (13:26)
[2023-06-29] MEDS ORDERED: LORA-259 PO (13:26)
[2023-06-29] MEDS ORDERED: ALBUT2 IH (13:26)
[2023-06-29] MEDS ORDERED: ESCI10TA PO (13:26)
[2023-06-29] MEDS ORDERED: IPRA0.2S9 IH (13:26)
[2023-06-29] MEDS ORDERED: POTA20TA83 PO (13:36)
[2023-06-29] MEDS ORDERED: ONDA4TAB5 PO (13:36)
[2023-06-29] MEDS ORDERED: COLE1TAB PO (13:36)
== END 2023-06-29 13:45 | disposition short-term general hospital (02) | DRG 885 ==
LOC: GPS 13:29
PROVIDERS: ADMIT Psychiatry & Neurology Psychosomatic Medicine; ATTEND Internal Medicine
DX: F33.3 Major depressive disorder, recurrent, severe with psychotic symptoms (principal); N17.9 Acute kidney failure, unspecified; N18.9 Chronic kidney disease, unspecified; K50.90 Crohn's disease, unspecified, without complications; F23 Brief psychotic disorder; F41.9 Anxiety disorder, unspecified; G89.4 Chronic pain syndrome; I95.1 Orthostatic hypotension; R62.7 Adult failure to thrive; Z73.6 Limitation of activities due to disability; M62.81 Muscle weakness (generalized); K58.9 Irritable bowel syndrome, unspecified; H54.8 Legal blindness, as defined in USA; N40.0 Benign prostatic hyperplasia without lower urinary tract symptoms; K21.9 Gastro-esophageal reflux disease without esophagitis; R55 Syncope and collapse
CPT/HCPCS: 36415; 70450-TC; 76770-TC; 80048-TC; 80053-TC; 80061-TC; 82565-TC; 83735-TC; 84100-TC; 85025-TC; 87086-TC; J1650

== ENCOUNTER 2023-06-29 12:53 | Inpatient (IN) | payer MEDICARE ==
[~2023-06-29] VITALS: Ht 162.6 cm; Wt 53.5 kg
[~2023-06-29 12:53] MED LIST changes: +ALLA266C2 TP; -ARIP10TA9 PO; +ENOX40DI SQ; -ESCI20TA PO; -GABA-536 PO; -LEVA1.2528 IH; -LIPA1CAP15 PO; +LIPA1CAP27 PO; +MAGN400O6 PO; -MIRT7.5T10 PO; +MULT-447 PO; -MULT-594 PO; -OCTR100V SQ; +PANT40TA2 PO; -PANT40TA49 PO
[2023-06-29] MEDS ORDERED: ESCI10TA PO (13:26)
[2023-06-29] MEDS ORDERED: TAMS-12 PO (13:26)
[2023-06-29] MEDS ORDERED: IPRA0.2S9 IH (13:26)
[2023-06-29] MEDS ORDERED: LORA-259 PO (13:26)
[2023-06-29] MEDS ORDERED: MAG30ORA PO (13:26)
[2023-06-29] MEDS ORDERED: ALBUT2 IH (13:26)
[2023-06-29] MEDS ORDERED: ONDA4TAB5 PO (13:36)
[2023-06-29] MEDS ORDERED: COLE1TAB PO (13:36)
[2023-06-29] MEDS ORDERED: POTA20TA83 PO (13:36)
[2023-06-29 13:50] VITALS: BP 118/66; TEMP 98.1
[2023-06-29] MEDS ORDERED: ONDANSETRON HCL/PF 4 MG/2 ML VIAL IVP PRN (14:00)
[2023-06-29] MEDS ORDERED: POLYETHYLENE GLYCOL 3350 17 GM POWD.PACK PO PRN (14:00)
[2023-06-29] MEDS ORDERED: ACETAMINOPHEN 325 MG TABLET PO PRN (14:00)
[2023-06-29] MEDS ORDERED: IV NS 0.9% 1,000 ML IV PRN (14:00)
[2023-06-29] MEDS ORDERED: LORAZEPAM 1 MG TABLET PO PRN (14:00)
[2023-06-29] MEDS ORDERED: Z GUARD REMEDY 4 OZ OINT TP PRN (14:00)
[2023-06-29] MEDS ORDERED: MAG HYDROX/AL HYDROX/SIMETH 30 ML UDC PO PRN (14:00)
[2023-06-29] MEDS ORDERED: IPRATROPIUM NEB FS 0.5 MG/2.5 ML AMPUL.NEB IH PRN (14:00)
[2023-06-29] MEDS ORDERED: ALBUTEROL FS 2.5 MG/3 ML VIAL.NEB IH PRN (14:00)
[2023-06-29 15:42] VITALS: BP 108/66; O2SAT 98
[2023-06-29 15:44] VITALS: BP 95/57; O2SAT 98
[2023-06-29 15:47] VITALS: BP 89/58; O2SAT 98
[2023-06-29 16:00] VITALS: BP 110/78; TEMP 98.5; O2SAT 100
[2023-06-29] MEDS: TIMOLOL 0.5% SOLN OPHTH 5 ML BOTTLE EACHEYE SCH (17:00)
[2023-06-29] MEDS: MIDODRINE HCL (5MG) 5 MG TABLET PO SCH (17:02)
[2023-06-29] MEDS: LIPASE/PROTEASE/AMYLASE 1 EACH CAPSULE.DR PO SCH (17:03)
[2023-06-29] MEDS: oxyCODONE/APAP (5/325 MG) 1 UDTAB TABLET PO PRN (22:36)
[2023-06-30] MEDS: PANTOPRAZOLE 40 MG TABLET.DR PO SCH (07:30)
[2023-06-30] MEDS: TIMOLOL 0.5% SOLN OPHTH 5 ML BOTTLE EACHEYE SCH ×2 (08:34→17:28)
[2023-06-30] MEDS: ESCITALOPRAM OXALATE (10 MG) 10 MG TABLET PO SCH (08:35)
[2023-06-30] MEDS: CALCIUM CARBONATE 500 MG TAB.CHEW PO SCH (08:35)
[2023-06-30] MEDS: MULTIVIT W/MINERALS 1 TAB TABLET PO SCH (08:35)
[2023-06-30] MEDS: MIDODRINE HCL (5MG) 5 MG TABLET PO SCH ×3 (08:35→16:37)
[2023-06-30] MEDS: LIPASE/PROTEASE/AMYLASE 1 EACH CAPSULE.DR PO SCH ×3 (08:35→16:36)
[2023-06-30] MEDS: ENOXAPARIN SODIUM 40 MG/0.4 ML DISP.SYRIN SQ SCH (08:36)
[2023-06-30] MEDS: oxyCODONE/APAP (5/325 MG) 1 UDTAB TABLET PO PRN ×2 (10:13→16:37)
[2023-06-30] MEDS: IV NS 0.9% 1,000 ML IV SCH ×3 (12:15→22:48)
[2023-06-30 13:13] LABS: BASOPHILS # (AUTO) 0.1 K/uL (0.0-0.2); BASOPHILS % (AUTO) 0.4 % (0.0-2.0); EOSINOPHILS # (AUTO) 0.1 K/uL (0.0-0.7); EOSINOPHILS % (AUTO) 0.8 % (0.0-6.0); HEMATOCRIT 42 % (39-51); HEMOGLOBIN 14.2 g/dL (13.5-17.5); LYMPHOCYTES # (AUTO) 1.9 K/uL (0.8-4.8); MEAN CORPUSCULAR HEMOGLOBIN 30 PG (26.0-33.0); MEAN CORPUSCULAR HGB CONC 34 g/dl (31.0-36.0); MEAN CORPUSCULAR VOLUME 89 fL (80-96); MONOCYTES # (AUTO) 1.6 K/uL (0.1-1.30); MONOCYTES % (AUTO) 9.9 % (2.0-12.0); NEUTROPHILS # (AUTO) 12.3 K/uL (1.8-8.9); NEUTROPHILS % (AUTO) 76.9 % (43.0-81.0); PLATELET COUNT (AUTO) 311 K/uL (150-450); RED CELL DISTRIBUTION WIDTH 13.3 % (11.5-15.0); WHITE BLOOD COUNT (AUTO) 15.9 K/uL (4.3-11.0)
[2023-06-30 16:00] VITALS: BP 117/75; TEMP 97.9; O2SAT 99
[2023-06-30 16:19] LABS: ALBUMIN 4.7 g/dL (3.4-5.0); BILIRUBIN,TOTAL 1.1 mg/dL (0.2-1.0); CALCIUM, SERUM 8.9 mg/dL (8.5-10.1); CREATININE 2.3 mg/dL (0.6-1.3); POTASSIUM 4.2 mmol/L (3.5-5.1); TOTAL PROTEIN, SERUM 8.4 g/dL (6.4-8.2)
[2023-06-30 21:26] VITALS: BP 94/66; TEMP 98.4; O2SAT 99
[2023-07-01] MEDS: oxyCODONE/APAP (5/325 MG) 1 UDTAB TABLET PO PRN ×3 (00:39→18:25)
[2023-07-01] MEDS: IV NS 0.9% 1,000 ML IV SCH ×3 (04:40→17:23)
[2023-07-01 06:20] LABS: BASOPHILS # (AUTO) 0.1 K/uL (0.0-0.2); BASOPHILS % (AUTO) 0.6 % (0.0-2.0); EOSINOPHILS # (AUTO) 0.1 K/uL (0.0-0.7); EOSINOPHILS % (AUTO) 0.9 % (0.0-6.0); HEMATOCRIT 36 % (39-51); LYMPHOCYTES # (AUTO) 2.1 K/uL (0.8-4.8); LYMPHOCYTES % (AUTO) 17.3 % (20.0-44.0); MEAN CORPUSCULAR HEMOGLOBIN 30 PG (26.0-33.0); MEAN CORPUSCULAR HGB CONC 34 g/dl (31.0-36.0); MEAN CORPUSCULAR VOLUME 90 fL (80-96); MONOCYTES # (AUTO) 1.4 K/uL (0.1-1.30); MONOCYTES % (AUTO) 11.7 % (2.0-12.0); NEUTROPHILS # (AUTO) 8.3 K/uL (1.8-8.9); NEUTROPHILS % (AUTO) 69.5 % (43.0-81.0); PLATELET COUNT (AUTO) 251 K/uL (150-450); RED BLOOD CELL COUNT(AUTO) 3.96 MIL/uL (4.5-6.0); RED CELL DISTRIBUTION WIDTH 13.4 % (11.5-15.0); WHITE BLOOD COUNT (AUTO) 11.9 K/uL (4.3-11.0)
[2023-07-01 06:39] LABS: ALBUMIN 3.8 g/dL (3.4-5.0); BILIRUBIN,TOTAL 0.6 mg/dL (0.2-1.0); CALCIUM, SERUM 8.6 mg/dL (8.5-10.1); CREATININE 1.5 mg/dL (0.6-1.3); MAGNESIUM 2.1 mg/dL (1.8-2.4); PHOSPHORUS 3.1 mg/dL (2.5-4.9); POTASSIUM 4.1 mmol/L (3.5-5.1); TOTAL PROTEIN, SERUM 6.9 g/dL (6.4-8.2)
[2023-07-01 08:00] VITALS: BP 107/63; TEMP 97.5; O2SAT 99
[2023-07-01] MEDS: ENOXAPARIN SODIUM 40 MG/0.4 ML DISP.SYRIN SQ SCH (08:06)
[2023-07-01] MEDS: CALCIUM CARBONATE 500 MG TAB.CHEW PO SCH (08:06)
[2023-07-01] MEDS: ESCITALOPRAM OXALATE (10 MG) 10 MG TABLET PO SCH (08:07)
[2023-07-01] MEDS: LIPASE/PROTEASE/AMYLASE 1 EACH CAPSULE.DR PO SCH ×3 (08:07→16:25)
[2023-07-01] MEDS: PANTOPRAZOLE 40 MG TABLET.DR PO SCH (08:07)
[2023-07-01] MEDS: MULTIVIT W/MINERALS 1 TAB TABLET PO SCH (08:07)
[2023-07-01] MEDS: MIDODRINE HCL (5MG) 5 MG TABLET PO SCH ×3 (08:10→16:27)
[2023-07-01] MEDS: TIMOLOL 0.5% SOLN OPHTH 5 ML BOTTLE EACHEYE SCH ×2 (08:25→16:25)
[2023-07-01 13:07] LABS: PTH, INTACT 198 pg/mL (15-65)
[2023-07-01 16:10] VITALS: BP 100/59; TEMP 98.6; O2SAT 99
[2023-07-01 20:00] VITALS: BP 96/64; TEMP 99.3; O2SAT 100
[2023-07-02] MEDS: IV NS 0.9% 1,000 ML IV SCH ×2 (00:48→08:21)
[2023-07-02] MEDS: oxyCODONE/APAP (5/325 MG) 1 UDTAB TABLET PO PRN ×2 (03:33→11:56)
[2023-07-02 06:07] LABS: PTH, INTACT 147 pg/mL (15-65)
[2023-07-02 07:25] LABS: BASOPHILS % (AUTO) 0.4 % (0.0-2.0); EOSINOPHILS # (AUTO) 0.1 K/uL (0.0-0.7); EOSINOPHILS % (AUTO) 1.3 % (0.0-6.0); HEMATOCRIT 32 % (39-51); HEMOGLOBIN 10.7 g/dL (13.5-17.5); LYMPHOCYTES # (AUTO) 1.5 K/uL (0.8-4.8); LYMPHOCYTES % (AUTO) 20.8 % (20.0-44.0); MEAN CORPUSCULAR HEMOGLOBIN 30 PG (26.0-33.0); MEAN CORPUSCULAR HGB CONC 33 g/dl (31.0-36.0); MEAN CORPUSCULAR VOLUME 92 fL (80-96); MONOCYTES # (AUTO) 0.8 K/uL (0.1-1.30); MONOCYTES % (AUTO) 11.2 % (2.0-12.0); NEUTROPHILS # (AUTO) 4.9 K/uL (1.8-8.9); NEUTROPHILS % (AUTO) 66.3 % (43.0-81.0); PLATELET COUNT (AUTO) 204 K/uL (150-450); RED BLOOD CELL COUNT(AUTO) 3.54 MIL/uL (4.5-6.0); RED CELL DISTRIBUTION WIDTH 13.5 % (11.5-15.0); WHITE BLOOD COUNT (AUTO) 7.4 K/uL (4.3-11.0)
[2023-07-02 07:34] LABS: CALCIUM, SERUM 8.2 mg/dL (8.5-10.1); CREATININE 1.1 mg/dL (0.6-1.3); POTASSIUM 3.5 mmol/L (3.5-5.1)
[2023-07-02] MEDS: PANTOPRAZOLE 40 MG TABLET.DR PO SCH (08:22)
[2023-07-02] MEDS: MULTIVIT W/MINERALS 1 TAB TABLET PO SCH (09:15)
[2023-07-02] MEDS: ENOXAPARIN SODIUM 40 MG/0.4 ML DISP.SYRIN SQ SCH (09:15)
[2023-07-02] MEDS: CALCIUM CARBONATE 500 MG TAB.CHEW PO SCH (09:16)
[2023-07-02] MEDS: LIPASE/PROTEASE/AMYLASE 1 EACH CAPSULE.DR PO SCH ×2 (09:16→13:15)
[2023-07-02] MEDS: ESCITALOPRAM OXALATE (10 MG) 10 MG TABLET PO SCH (09:18)
[2023-07-02] MEDS: MIDODRINE HCL (5MG) 5 MG TABLET PO SCH ×2 (09:18→13:15)
[2023-07-02] MEDS: TIMOLOL 0.5% SOLN OPHTH 5 ML BOTTLE EACHEYE SCH (09:47)
[2023-07-02 12:03] LABS: *SPE A/G RATIO 1.2 (0.7-1.7); *SPE ALBUMIN 3.6 g/dL (2.9-4.4); *SPE ALPHA-1-GLOBULIN 0.2 g/dL (0.0-0.4); *SPE ALPHA-2-GLOBULIN 0.6 g/dL (0.4-1.0); *SPE BETA GLOBULIN 0.8 g/dL (0.7-1.3); *SPE GLOBULIN, TOTAL 2.9 g/dL (2.2-3.9); *SPE M-SPIKE Not Observed g/dL (Not Observed); *SPE PROTEIN TOTAL 6.5 g/dL (6.0-8.5); *SPEGAMMA GLOBULIN 1.2 g/dL (0.4-1.8)
[2023-07-02 12:03] LABS: *SPE A/G RATIO 1.3 (0.7-1.7); *SPE ALBUMIN 4.3 g/dL (2.9-4.4); *SPE ALPHA-1-GLOBULIN 0.3 g/dL (0.0-0.4); *SPE ALPHA-2-GLOBULIN 0.9 g/dL (0.4-1.0); *SPE GLOBULIN, TOTAL 3.4 g/dL (2.2-3.9); *SPE M-SPIKE Not Observed g/dL (Not Observed); *SPE PROTEIN TOTAL 7.7 g/dL (6.0-8.5); *SPEGAMMA GLOBULIN 1.3 g/dL (0.4-1.8)
[2023-07-02 13:15] VITALS: BP 93/46
== END 2023-07-02 14:46 | DRG 640 ==
LOC: TELE 12:53 → MED 06-30 12:00
PROVIDERS: ATTEND Internal Medicine
PROC: 05H533Z Insertion of Infusion Device into Right Subclavian Vein, Percutaneous Approach (ICD-10-PCS; principal; 2023-06-30)
PROC: B546ZZA Ultrasonography of Right Subclavian Vein, Guidance (ICD-10-PCS; 2023-06-30)
DX: E86.0 Dehydration (principal); N17.0 Acute kidney failure with tubular necrosis; F23 Brief psychotic disorder; K50.90 Crohn's disease, unspecified, without complications; F32.3 Major depressive disorder, single episode, severe with psychotic features; I95.1 Orthostatic hypotension; N18.9 Chronic kidney disease, unspecified; N40.0 Benign prostatic hyperplasia without lower urinary tract symptoms; F32.A Depression, unspecified; F41.9 Anxiety disorder, unspecified; G89.4 Chronic pain syndrome; H54.8 Legal blindness, as defined in USA; K58.9 Irritable bowel syndrome, unspecified; N26.1 Atrophy of kidney (terminal); Z20.822 Contact with and (suspected) exposure to COVID-19; Z73.6 Limitation of activities due to disability; M62.81 Muscle weakness (generalized); K21.9 Gastro-esophageal reflux disease without esophagitis; D72.829 Elevated white blood cell count, unspecified; W19.XXXA Unspecified fall, initial encounter; Y93.9 Activity, unspecified; Y92.230 Patient room in hospital as the place of occurrence of the external cause
CPT/HCPCS: 36410; 36415; 80048-TC; 80053-TC; 82550-TC; 83735-TC; 83970; 84100-TC; 84155; 84165; 84484-TC; 85025-TC; 87081-TC; 93307-TC; 97112-TC; 97116-TC; 97530-TC; A4223; G0378; J1650; J2405; J7030

== ENCOUNTER 2023-11-17 13:17 | Emergency (ER) | payer MEDICARE, OTHER ==
[~2023-11-17] VITALS: Ht 157.5 cm; Wt 59.0 kg
[~2023-11-17 13:17] MED LIST changes: +ALBUT2 IH; -ALLA266C2 TP; -CRAN425C6 PO; +ESCI10TA PO; +IPRA0.2S9 IH; -IPRA3AMP23 IH; +LORA-259 PO; +MAG30ORA PO; -SACC250C9 PO; -TAMS-12 PO
[2023-11-17 14:12] LABS: BASOPHILS # (AUTO) 0.1 K/uL (0.0-0.2); BASOPHILS % (AUTO) 0.7 % (0.0-2.0); EOSINOPHILS # (AUTO) 0.1 K/uL (0.0-0.7); EOSINOPHILS % (AUTO) 0.8 % (0.0-6.0); HEMATOCRIT 40 % (39-51); HEMOGLOBIN 13.5 g/dL (13.5-17.5); LYMPHOCYTES # (AUTO) 1.5 K/uL (0.8-4.8); LYMPHOCYTES % (AUTO) 15.4 % (20.0-44.0); MEAN CORPUSCULAR HEMOGLOBIN 31 PG (26.0-33.0); MEAN CORPUSCULAR HGB CONC 34 g/dl (31.0-36.0); MEAN CORPUSCULAR VOLUME 90 fL (80-96); MONOCYTES # (AUTO) 0.9 K/uL (0.1-1.30); MONOCYTES % (AUTO) 9.4 % (2.0-12.0); NEUTROPHILS # (AUTO) 7.3 K/uL (1.8-8.9); NEUTROPHILS % (AUTO) 73.7 % (43.0-81.0); PLATELET COUNT (AUTO) 239 K/uL (150-450); RED CELL DISTRIBUTION WIDTH 12.9 % (11.5-15.0); WHITE BLOOD COUNT (AUTO) 9.9 K/uL (4.3-11.0)
[2023-11-17 14:30] LABS: ALANINE AMINOTRANSFERASE 45 U/L (12-78); ALCOHOL, BLOOD < 3 mg/dL (0-10); ALKALINE PHOSPHATASE 139 U/L (46-116); ASPARTATE AMINOTRANSFERASE 26 U/L (15-37); BILIRUBIN,DIRECT 0.2 mg/dL (0.0-0.2); BILIRUBIN,TOTAL 0.5 mg/dL (0.2-1.0); CALCIUM, SERUM 9.4 mg/dL (8.5-10.1); CARBON DIOXIDE 29 mmol/L (21-32); CHLORIDE 101 mmol/L (98-107); CREATININE 1.2 mg/dL (0.6-1.3); GLUCOSE 90 mg/dL (74-106); POTASSIUM 3.2 mmol/L (3.5-5.1); SODIUM SERUM 136 mmol/L (136-145); TOTAL PROTEIN, SERUM 8.1 g/dL (6.4-8.2); UREA NITROGEN, BLOOD 13 mg/dL (7-18)
[2023-11-17 14:43] LABS: ACETAMINOPHEN <10 ug/ml (10-30); SALICYLATE 0.2 mg/dL (2.8-20.0)
[2023-11-17 16:46] LABS: APPEARANCE,URINE CLEAR (CLEAR); BILIRUBIN,URINE NEGATIVE (NEGATIVE); BLOOD, URINE NEGATIVE Ery/uL (NEGATIVE); COLOR,URINE YELLOW (YELLOW); KETONES,URINE NEGATIVE (NEGATIVE); LEUKOCYTE ESTERASE ,URINE TRACE (NEGATIVE); NITRITE, URINE NEGATIVE (NEGATIVE); PH,URINE 5.5 (5.0-8.0); PROTEIN,URINE TRACE mg/dl (NEGATIVE); UGLUCOSE NEGATIVE (NEGATIVE); UROBILINOGEN,URINE 0.2 EU/dL (0.2)
[2023-11-17] MEDS ORDERED: HYDROCODONE/APAP 5/325MG TABLET ONE (16:51)
[2023-11-17 16:56] LABS: AMPHETAMINE, URINE NEGATIVE (NEGATIVE); BARBITURATE, URINE NEGATIVE (NEGATIVE); BENZODIAZEPINE, URINE NEGATIVE (NEGATIVE); CANNABINOID, URINE NEGATIVE (NEGATIVE); COCCAINE, URINE NEGATIVE (NEGATIVE); PHENCYCLIDINE SCREEN,URINE NEGATIVE (NEGATIVE)
[2023-11-17] MEDS ORDERED: HYDROCODONE/APAP 5/325MG TABLET PO ONE (17:00)
[2023-11-17 17:12] LABS: OPIATE, URINE POSITIVE (NEGATIVE)
[2023-11-17 17:14] LABS: ADD URINE CULTURE NO; BACTERIA,URINE None seen /HPF (None Seen); RBC,URINE 0-2 /HPF (0-2); SQUAMOUS EPITHELIAL CELL,UR None Seen /HPF (None Seen); YEAST,URINE Few /HPF (None Seen)
[2023-11-17 17:15] LABS: MUCUS,URINE Few /LPF (None Seen)
[2023-11-17 19:18] VITALS: BP 106/66; TEMP 98.1; O2SAT 99
== END 2023-11-17 19:30 ==
LOC: ER 13:17
DX: F91.1 Conduct disorder, childhood-onset type (principal); G93.41 Metabolic encephalopathy; K21.9 Gastro-esophageal reflux disease without esophagitis; N18.30 Chronic kidney disease, stage 3 unspecified; Z79.899 Other long term (current) drug therapy; Z98.890 Other specified postprocedural states; Z88.1 Allergy status to other antibiotic agents
CPT/HCPCS: 36415; 80048-TC; 80076-TC; 81001; 85025-TC; G0480

== ENCOUNTER 2024-01-22 22:37 | Emergency (ER) | payer MEDICARE, OTHER ==
[~2024-01-22] VITALS: Ht 152.4 cm; Wt 68.0 kg
[~2024-01-22 22:37] MED LIST changes: -ALBUT2 IH; -IPRA0.2S9 IH; +LORA-258 PO; -LORA-259 PO; -MAG30ORA PO; -MAGN400O6 PO; -ONDA4TAB5 PO; -POLY17PO4 PO
[2024-01-22 23:24] LABS: BASOPHILS % (AUTO) 0.3 % (0.0-2.0); EOSINOPHILS # (AUTO) 0.1 K/uL (0.0-0.7); EOSINOPHILS % (AUTO) 0.7 % (0.0-6.0); HEMATOCRIT 39 % (39-51); HEMOGLOBIN 13.1 g/dL (13.5-17.5); LYMPHOCYTES # (AUTO) 1.2 K/uL (0.8-4.8); LYMPHOCYTES % (AUTO) 12.7 % (20.0-44.0); MEAN CORPUSCULAR HEMOGLOBIN 31 PG (26.0-33.0); MEAN CORPUSCULAR HGB CONC 34 g/dl (31.0-36.0); MEAN CORPUSCULAR VOLUME 92 fL (80-96); MONOCYTES # (AUTO) 0.5 K/uL (0.1-1.30); MONOCYTES % (AUTO) 5.5 % (2.0-12.0); NEUTROPHILS # (AUTO) 7.7 K/uL (1.8-8.9); NEUTROPHILS % (AUTO) 80.8 % (43.0-81.0); PLATELET COUNT (AUTO) 201 K/uL (150-450); RED BLOOD CELL COUNT(AUTO) 4.24 MIL/uL (4.5-6.0); RED CELL DISTRIBUTION WIDTH 13.5 % (11.5-15.0); WHITE BLOOD COUNT (AUTO) 9.5 K/uL (4.3-11.0)
[2024-01-22 23:33] LABS: CALCIUM, SERUM 9.2 mg/dL (8.5-10.1); CARBON DIOXIDE 28 mmol/L (21-32); CHLORIDE 104 mmol/L (98-107); CREATININE 1.3 mg/dL (0.6-1.3); GLUCOSE 139 mg/dL (74-106); POTASSIUM 3.5 mmol/L (3.5-5.1); SODIUM SERUM 138 mmol/L (136-145); UREA NITROGEN, BLOOD 12 mg/dL (7-18)
[2024-01-22 23:40] LABS: ALANINE AMINOTRANSFERASE 55 U/L (12-78); ALBUMIN 3.9 g/dL (3.4-5.0); ALCOHOL, BLOOD 3 mg/dL (0-10); ALKALINE PHOSPHATASE 155 U/L (46-116); ASPARTATE AMINOTRANSFERASE 30 U/L (15-37); BILIRUBIN,DIRECT 0.2 mg/dL (0.0-0.2); BILIRUBIN,TOTAL 0.4 mg/dL (0.2-1.0); TOTAL PROTEIN, SERUM 7.5 g/dL (6.4-8.2)
[2024-01-22 23:41] LABS: ACETAMINOPHEN <10 ug/ml (10-30); SALICYLATE 0.4 mg/dL (2.8-20.0)
[2024-01-23 00:53] LABS: ADD URINE CULTURE YES; APPEARANCE,URINE CLEAR (CLEAR); BACTERIA,URINE Rare /HPF (None Seen); BILIRUBIN,URINE NEGATIVE (NEGATIVE); BLOOD, URINE NEGATIVE Ery/uL (NEGATIVE); COLOR,URINE YELLOW (YELLOW); KETONES,URINE NEGATIVE (NEGATIVE); LEUKOCYTE ESTERASE ,URINE 1+ (NEGATIVE); NITRITE, URINE NEGATIVE (NEGATIVE); PROTEIN,URINE NEGATIVE (NEGATIVE); RBC,URINE 0-2 /HPF (0-2); SQUAMOUS EPITHELIAL CELL,UR Rare /HPF (None Seen); UGLUCOSE NEGATIVE (NEGATIVE); UROBILINOGEN,URINE 0.2 EU/dL (0.2)
[2024-01-23] MEDS ORDERED: ACETAMINOPHEN 325 MG TABLET PO PRN (01:00)
[2024-01-23 01:08] LABS: AMPHETAMINE, URINE NEGATIVE (NEGATIVE); BARBITURATE, URINE NEGATIVE (NEGATIVE); BENZODIAZEPINE, URINE NEGATIVE (NEGATIVE); CANNABINOID, URINE NEGATIVE (NEGATIVE); COCCAINE, URINE NEGATIVE (NEGATIVE); PHENCYCLIDINE SCREEN,URINE NEGATIVE (NEGATIVE)
[2024-01-23 01:10] LABS: OPIATE, URINE POSITIVE (NEGATIVE)
[2024-01-23] MEDS ORDERED: PANTOPRAZOLE 40 MG TABLET.DR PO ONE (07:48)
[2024-01-23] MEDS: PANTOPRAZOLE 40 MG TABLET.DR PO SCH (07:56)
[2024-01-23 07:59] VITALS: TEMP 98.2
[2024-01-23] MEDS ORDERED: LIPASE/PROTEASE/AMYLASE 1 EACH CAPSULE.DR PO SCH (08:00)
[2024-01-23] MEDS: CALCIUM CARBONATE 500 MG TAB.CHEW PO SCH (09:00)
[2024-01-23] MEDS ORDERED: COLESTIPOL HCL 1 GM PO SCH (09:00)
[2024-01-23] MEDS: TIMOLOL 0.5% SOLN OPHTH 5 ML BOTTLE EACHEYE SCH (09:00)
[2024-01-23] MEDS: ENOXAPARIN SODIUM 40 MG/0.4 ML DISP.SYRIN SQ SCH (09:00)
[2024-01-23] MEDS: MAGNESIUM OXIDE 400 MG TABLET PO SCH (09:00)
[2024-01-23] MEDS: MULTIVIT W/MINERALS 1 TAB TABLET PO SCH (09:00)
[2024-01-23] MEDS: MIDODRINE HCL (5MG) 5 MG TABLET PO SCH (09:00)
[2024-01-23] MEDS ORDERED: OLANZAPINE 10 MG VIAL IM ONE (14:00)
[2024-01-23 16:40] VITALS: BP 126/81; O2SAT 100
== END 2024-01-23 16:41 ==
LOC: ER 22:55 → TRANSITION 01-23 09:25 → UNDOADMIN 01-23 09:25 → UNDODISIN 01-23 16:38 → TRANSITION 01-23 16:41 → ER 01-23 16:41
DX: R46.1 Bizarre personal appearance (principal); G93.41 Metabolic encephalopathy; K50.90 Crohn's disease, unspecified, without complications; Z95.0 Presence of cardiac pacemaker; K21.9 Gastro-esophageal reflux disease without esophagitis; N40.0 Benign prostatic hyperplasia without lower urinary tract symptoms; N18.30 Chronic kidney disease, stage 3 unspecified; Z87.828 Personal history of other (healed) physical injury and trauma; Z93.2 Ileostomy status; Z90.49 Acquired absence of other specified parts of digestive tract; Z98.890 Other specified postprocedural states; Z91.011 Allergy to milk products; Z79.01 Long term (current) use of anticoagulants; Z79.899 Other long term (current) drug therapy; Z87.09 Personal history of other diseases of the respiratory system; Z73.9 Problem related to life management difficulty, unspecified
CPT/HCPCS: 99285; 85025; 80048; 80076; 87426; 80143; 80320; 80307; 81001; 36415; J3490; G0480